=== PATIENT | female | born 1955 | race Caucasian/White ===

== ENCOUNTER → 2016-11-28 | Outpatient (CLI) | payer MEDICARE, MEDICAID, SELFPAY ==
[~2016-11-28] VITALS: Ht 147.3 cm; Wt 41.0 kg
[~2016-11-28] MED LIST: ASPI-891 PO; BENZ1TAB10 PO; CALC-789 PO; DSS100 PO; FISH1CAP49 PO; GABA-531 PO; GABA-533 PO; HALO5 PO; IBUP-2070 PO; RANI150T7 PO; TRAM50TA4 PO
[2016-11-28 09:55] VITALS: BP 106/70
== END | disposition home or self-care (01) ==
LOC: SRCNTR 09:51
PROVIDERS: ATTEND Hospitalist
DX: J44.9 Chronic obstructive pulmonary disease, unspecified (principal); M81.0 Age-related osteoporosis without current pathological fracture; M25.512 Pain in left shoulder; F99 Mental disorder, not otherwise specified; B07.8 Other viral warts; Z72.0 Tobacco use; Z71.6 Tobacco abuse counseling
CPT/HCPCS: G0463

== ENCOUNTER → 2016-12-23 | Outpatient (CLI) | payer MEDICARE, OTHER ==
[2016-12-23 11:27] LABS: BASOPHILS % (AUTO) 0.5 % (0.0-2.0); EOSINOPHILS % (AUTO) 1.4 % (1.0-6.0); HEMATOCRIT 41.1 % (36-46); HEMOGLOBIN 13.6 g/dL (12.0-16.0); LYMPHOCYTES # (AUTO) 1.4 K/uL (1.0-4.8); LYMPHOCYTES % (AUTO) 28.1 % (22.0-44.0); MEAN CORPUSCULAR HEMOGLOBIN 31.4 pg (26.0-34.0); MEAN CORPUSCULAR HGB CONC 33.1 G/dL (31.0-37.0); MEAN CORPUSCULAR VOLUME 95 fL (80-100); MONOCYTES # (AUTO) 0.4 K/uL (0.1-1.0); MONOCYTES % (AUTO) 7.7 % (2.0-9.0); NEUTROPHILS # (AUTO) 3.2 K/uL (1.8-7.7); NEUTROPHILS % (AUTO) 62.3 % (40.0-70.0); PLATELET COUNT (AUTO) 243 K/uL (150-450); RED BLOOD CELL COUNT(AUTO) 4.35 MIL/uL (4.00-5.20); RED CELL DISTRIBUTION WIDTH 13.2 % (11.5-14.5); WHITE BLOOD COUNT (AUTO) 5.1 K/uL (4.5-11.0)
[2016-12-23 11:57] LABS: ALANINE AMINOTRANSFERASE 28 U/L (12-78); ALBUMIN 3.7 g/dL (3.4-5.0); ANION GAP 7 mmol/L (8-16); ASPARTATE AMINOTRANSFERASE 33 U/L (15-37); BILIRUBIN,TOTAL 0.3 mg/dL (0.1-1.0); CALCIUM, TOTAL 8.4 mg/dL (8.8-10.5); CARBON DIOXIDE 30 mmol/L (22-29); CHLORIDE 102 mmol/L (98-107); CHOL/HDL RATIO 2.8 (3.9-5.7); CREATININE 0.65 mg/dL (0.60-1.30); GLOMERULAR FILTR. RATE CALC > 60 mL/min (>60); POTASSIUM 4.4 mmol/L (3.5-5.1); SODIUM SERUM 139 mmol/L (136-145); THYROID STIMULATING HORMONE 2.13 uIU/mL (0.36-3.74); UREA NITROGEN, BLOOD 19 mg/dL (7-18)
== END | disposition home or self-care (01) ==
LOC: MSR 10:31
PROVIDERS: ATTEND Hospitalist
DX: J44.9 Chronic obstructive pulmonary disease, unspecified (principal); M81.0 Age-related osteoporosis without current pathological fracture; I70.0 Atherosclerosis of aorta; J98.4 Other disorders of lung; Z72.0 Tobacco use; Z79.899 Other long term (current) drug therapy; Z96.612 Presence of left artificial shoulder joint
CPT/HCPCS: 71020; 82271; 84439; 84443

== ENCOUNTER → 2017-02-20 | Outpatient (CLI) | payer MEDICARE, MEDICAID, SELFPAY ==
[~2017-02-20] VITALS: Ht 147.3 cm; Wt 41.0 kg
[2017-02-20 11:06] VITALS: BP 97/67
== END | disposition home or self-care (01) ==
LOC: SRCNTR 10:56
PROVIDERS: ATTEND Hospitalist
DX: J44.9 Chronic obstructive pulmonary disease, unspecified (principal); M81.0 Age-related osteoporosis without current pathological fracture; F99 Mental disorder, not otherwise specified; B07.8 Other viral warts; Z72.0 Tobacco use
CPT/HCPCS: G0463

== ENCOUNTER 2017-06-06 00:01 | Outpatient (RCR) | payer MEDICARE, MEDICAID, SELFPAY ==
[2016-10-18 11:46] VITALS: BP 114/81
[~2017-06-06 00:01] MED LIST changes: +ACET-2902 PO; +ALBUTEROL 2 PUFFS PO; +ATOR10TA84 PO; +ATOR20TA86 PO; +BENZ2TAB58 GT; +BENZ2TAB58 PO; +CALC3.7S6 NASAL; +CHLO100T24 PO; +CHLO50 PO; +DIPH12.55 PO; +DOCU250C14 PO; +DOCU250C91 PO; +DULO20CA30 PO; +DULO30CA2 PO; +FERR-89 PO; +GABA-529 PO; +HALO10 PO; +HALO10TA15 GT; +HALO10TA15 PO; +HYDR-3965 PO; +LORA2TAB2 PO; +MAG-55 PO; +OMEP20 PO; +ONDA4TAB10 PO; +PANT40TA25 PO; +SINGULAR PO; +THORAZINE PO
== END 2017-07-05 | disposition home or self-care (01) ==
LOC: IOPBV 00:01
PROVIDERS: ATTEND Psychiatry & Neurology Psychiatry
DX: F25.9 Schizoaffective disorder, unspecified (principal); F22 Delusional disorders; M25.512 Pain in left shoulder; F17.210 Nicotine dependence, cigarettes, uncomplicated; J44.9 Chronic obstructive pulmonary disease, unspecified; K21.9 Gastro-esophageal reflux disease without esophagitis; M79.9 Soft tissue disorder, unspecified; M19.90 Unspecified osteoarthritis, unspecified site; F41.9 Anxiety disorder, unspecified; F32.9 Major depressive disorder, single episode, unspecified; B19.20 Unspecified viral hepatitis C without hepatic coma; Z91.09 Other allergy status, other than to drugs and biological substances; Z88.3 Allergy status to other anti-infective agents; Z88.4 Allergy status to anesthetic agent
CPT/HCPCS: 90853

== ENCOUNTER 2019-03-18 04:19 | Inpatient (IN) | payer MEDICARE, MEDICAID ==
[~2019-03-18] VITALS: Ht 147.3 cm; Wt 39.7 kg
[~2019-03-18 04:19] MED LIST changes: -ACET-2902 PO; -ALBUTEROL 2 PUFFS PO; -ATOR10TA84 PO; -ATOR20TA86 PO; -BENZ2TAB58 GT; -BENZ2TAB58 PO; -CALC3.7S6 NASAL; -CHLO100T24 PO; -CHLO50 PO; -DIPH12.55 PO; -DOCU250C14 PO; -DOCU250C91 PO; -DULO20CA30 PO; -DULO30CA2 PO; -FERR-89 PO; -GABA-529 PO; -GABA-533 PO; -HALO10 PO; -HALO10TA15 GT; -HALO10TA15 PO; -HALO5 PO; +HALO5TAB2 PO; -HYDR-3965 PO; -IBUP-2070 PO; -LORA2TAB2 PO; -MAG-55 PO; -OMEP20 PO; -ONDA4TAB10 PO; -PANT40TA25 PO; -SINGULAR PO; -THORAZINE PO
[2019-03-18 04:48] LABS: BASOPHILS % (AUTO) 0.9 % (0.0-2.0); EOSINOPHILS % (AUTO) 2.6 % (1.0-6.0); HEMATOCRIT 36.7 % (36-46); HEMOGLOBIN 12.3 g/dL (12.0-16.0); LYMPHOCYTES % (AUTO) 19.5 % (22.0-44.0); MEAN CORPUSCULAR HGB CONC 33.6 G/dL (31.0-37.0); MEAN CORPUSCULAR VOLUME 95 fL (80-100); MONOCYTES # (AUTO) 0.4 K/uL (0.1-1.0); MONOCYTES % (AUTO) 7.6 % (2.0-9.0); NEUTROPHILS # (AUTO) 3.6 K/uL (1.8-7.7); NEUTROPHILS % (AUTO) 69.4 % (40.0-70.0); PLATELET COUNT (AUTO) 222 K/uL (150-450); RED BLOOD CELL COUNT(AUTO) 3.85 MIL/uL (4.00-5.20); RED CELL DISTRIBUTION WIDTH 12.8 % (11.5-14.5)
[2019-03-18 04:58] LABS: ANION GAP 10 mmol/L (8-16); CALCIUM, TOTAL 8.7 mg/dL (8.8-10.5); CARBON DIOXIDE 29 mmol/L (22-29); CHLORIDE 105 mmol/L (98-107); GLOMERULAR FILTR. RATE CALC > 60 mL/min (>60); GLUCOSE,RANDOM 119 mg/dL (70-110); POTASSIUM 4.3 mmol/L (3.5-5.1); SODIUM SERUM 144 mmol/L (136-145); UREA NITROGEN, BLOOD 24 mg/dL (7-18)
[2019-03-18 05:04] LABS: ALANINE AMINOTRANSFERASE 24 U/L (12-78); ALBUMIN 3.1 g/dL (3.4-5.0); ALKALINE PHOSPHATASE 65 U/L (46-116); ASPARTATE AMINOTRANSFERASE 38 U/L (15-37); BILIRUBIN,TOTAL 0.3 mg/dL (0.1-1.0); TOTAL PROTEIN, SERUM 6.6 g/dL (6.4-8.2)
[2019-03-18 05:12] LABS: SALICYLATE 4.4 mg/dL (2.8-20.0)
[2019-03-18 05:15] LABS: ACETAMINOPHEN < 2 mcg/mL (10-30)
[2019-03-18] MEDS ORDERED: ZOLPIDEM TARTRATE 10 MG TABLET PO PRN (09:00)
[2019-03-18] MEDS ORDERED: HALOPERIDOL 5 MG TABLET PO PRN (09:00)
[2019-03-18] MEDS ORDERED: LORazepam 2 MG TABLET PO PRN (09:00)
[2019-03-18] MEDS ORDERED: LOPERAMIDE HCL 2 MG CAPSULE PO PRN (11:30)
[2019-03-18] MEDS ORDERED: ACETAMINOPHEN 325 MG TABLET PO PRN (11:30)
[2019-03-18] MEDS ORDERED: GuaiFENesin/D-METHORPHAN [SUGAR-FREE] 200-20MG/10 ML SYRUP UDCUP PO PRN (11:30)
[2019-03-18] MEDS ORDERED: PROMETHAZINE HCL 25 MG TABLET PO PRN (11:30)
[2019-03-18] MEDS ORDERED: MAG HYDROX/AL HYDROX/SIMETH ES 30 ML SUSPENSION UDCUP PO PRN (11:30)
[2019-03-18] MEDS ORDERED: TUBERCULIN, PURIFIED PROTEIN DERIVATIVE 5 TU/0.1 ML SYRINGE ID ONE (11:30)
[2019-03-18] MEDS ORDERED: MAGNESIUM HYDROXIDE SUSPENSION 30 ML UDCUP PO PRN (11:30)
[2019-03-18 12:00] VITALS: BP 103/68
[2019-03-18] MEDS ORDERED: GABAPENTIN 300 MG CAPSULE PO SCH ×2 (16:00→21:00)
[2019-03-18] MEDS ORDERED: BENZTROPINE MESYLATE 1 MG TABLET PO SCH (21:00)
[2019-03-18] MEDS ORDERED: THIAMINE HCL 100 MG TABLET PO SCH (21:00)
[2019-03-18] MEDS ORDERED: HALOPERIDOL 5 MG TABLET PO SCH (21:00)
[2019-03-19] MEDS ORDERED: FOLIC ACID 1 MG TABLET PO SCH (09:00)
[2019-03-19] MEDS ORDERED: MULTIVITAMINS WITH MINERALS, THERAPEUTIC TABLET PO SCH (09:00)
== END 2019-03-18 15:39 | disposition short-term general hospital (02) | DRG 885 ==
LOC: EMS 04:29 → B3A 09:33
PROVIDERS: ADMIT Psychiatry & Neurology Psychiatry; ATTEND Psychiatry & Neurology Psychiatry
DX: F20.0 Paranoid schizophrenia (principal); F17.210 Nicotine dependence, cigarettes, uncomplicated; F32.9 Major depressive disorder, single episode, unspecified; K21.9 Gastro-esophageal reflux disease without esophagitis; M81.0 Age-related osteoporosis without current pathological fracture; T50.902A Poisoning by unspecified drugs, medicaments and biological substances, intentional self-harm, initial encounter; G89.29 Other chronic pain; Y92.89 Other specified places as the place of occurrence of the external cause; Z65.3 Problems related to other legal circumstances; Z79.82 Long term (current) use of aspirin; Z86.59 Personal history of other mental and behavioral disorders; Z91.19 Patient's noncompliance with other medical treatment and regimen; Z79.899 Other long term (current) drug therapy
CPT/HCPCS: 93005; G0480; G0481

== ENCOUNTER 2019-03-22 16:30 | Inpatient (IN) | payer MEDICARE, MEDICAID ==
[~2019-03-22] VITALS: Ht 147.3 cm; Wt 39.3 kg
[2019-03-22] MEDS ORDERED: LOPERAMIDE HCL 2 MG CAPSULE PO PRN (17:30)
[2019-03-22] MEDS ORDERED: HALOPERIDOL 5 MG TABLET PO PRN (17:30)
[2019-03-22] MEDS ORDERED: MAGNESIUM HYDROXIDE SUSPENSION 30 ML UDCUP PO PRN (17:30)
[2019-03-22] MEDS ORDERED: ACETAMINOPHEN 325 MG TABLET PO PRN ×3 (17:30→19:15)
[2019-03-22 18:47] VITALS: BP 134/86
[2019-03-22] MEDS ORDERED: DOCUSATE SODIUM 100 MG CAPSULE PO PRN (19:00)
[2019-03-22] MEDS: GABAPENTIN 300 MG CAPSULE PO SCH (20:01)
[2019-03-22] MEDS: LORazepam 1 MG TABLET PO PRN (20:01)
[2019-03-22] MEDS: HALOPERIDOL 5 MG TABLET PO SCH (20:01)
[2019-03-22] MEDS: BENZTROPINE MESYLATE 1 MG TABLET PO SCH (20:01)
[2019-03-23 06:18] VITALS: BP 117/65
[2019-03-23 08:02] VITALS: BP 120/69
[2019-03-23] MEDS: CALCIUM OYSTER SHELL 250 MG-VIT D3 125 UNITS TABLET PO SCH (08:26)
[2019-03-23] MEDS: LEVOFLOXACIN 250 MG TABLET PO SCH (08:26)
[2019-03-23] MEDS: GABAPENTIN 300 MG CAPSULE PO SCH ×4 (08:26→20:34)
[2019-03-23] MEDS: BENZTROPINE MESYLATE 1 MG TABLET PO SCH ×2 (08:26→16:38)
[2019-03-23] MEDS: OMEGA-3/DHA/EPA/FISH OIL 1,000 MG CAPSULE PO SCH (08:26)
[2019-03-23] MEDS: LORazepam 1 MG TABLET PO PRN (09:37)
[2019-03-23] MEDS: MAG HYDROX/AL HYDROX/SIMETH ES 30 ML SUSPENSION UDCUP PO PRN (09:45)
[2019-03-23] MEDS: NICOTINE 21 MG/24 HOUR PATCH TD SCH (12:29)
[2019-03-23] MEDS: TraMADol HCL 50 MG TABLET PO PRN (12:32)
[2019-03-23 16:47] VITALS: BP 106/71
[2019-03-23] MEDS: HALOPERIDOL 5 MG TABLET PO SCH (20:33)
[2019-03-24 05:35] VITALS: BP 113/65
[2019-03-24] MEDS: LORazepam 1 MG TABLET PO PRN (07:41)
[2019-03-24] MEDS: GABAPENTIN 300 MG CAPSULE PO SCH ×4 (08:01→20:13)
[2019-03-24] MEDS: LEVOFLOXACIN 250 MG TABLET PO SCH (08:01)
[2019-03-24] MEDS: OMEGA-3/DHA/EPA/FISH OIL 1,000 MG CAPSULE PO SCH (08:01)
[2019-03-24] MEDS: BENZTROPINE MESYLATE 1 MG TABLET PO SCH ×2 (08:01→16:04)
[2019-03-24] MEDS: CALCIUM OYSTER SHELL 250 MG-VIT D3 125 UNITS TABLET PO SCH (08:02)
[2019-03-24] MEDS: NICOTINE 21 MG/24 HOUR PATCH TD SCH (08:03)
[2019-03-24 08:15] VITALS: BP 105/76
[2019-03-24] MEDS: TraMADol HCL 50 MG TABLET PO PRN ×2 (08:18→17:35)
[2019-03-24] MEDS: ChlorproMAZINE HCL 25 MG TABLET PO SCH (16:03)
[2019-03-24] MEDS ORDERED: ChlorproMAZINE HCL 50 MG TABLET PO SCH (17:00)
[2019-03-24 17:13] VITALS: BP 118/77
[2019-03-24 17:35] VITALS: BP 133/88
[2019-03-24] MEDS: MAG HYDROX/AL HYDROX/SIMETH ES 30 ML SUSPENSION UDCUP PO PRN (20:20)
[2019-03-25 05:54] VITALS: BP 108/64
[2019-03-25] MEDS: TraMADol HCL 50 MG TABLET PO PRN (06:24)
[2019-03-25 07:54] LABS: ALANINE AMINOTRANSFERASE 58 U/L (12-78); ALBUMIN 2.2 g/dL (3.4-5.0); ALKALINE PHOSPHATASE 78 U/L (46-116); ANION GAP 5 mmol/L (8-16); ASPARTATE AMINOTRANSFERASE 33 U/L (15-37); BILIRUBIN,TOTAL 0.4 mg/dL (0.1-1.0); CARBON DIOXIDE 29 mmol/L (22-29); CHLORIDE 102 mmol/L (98-107); CREATININE 0.52 mg/dL (0.60-1.30); GLOMERULAR FILTR. RATE CALC > 60 mL/min (>60); GLUCOSE,RANDOM 77 mg/dL (70-110); POTASSIUM 3.7 mmol/L (3.5-5.1); SODIUM SERUM 136 mmol/L (136-145); TOTAL PROTEIN, SERUM 5.6 g/dL (6.4-8.2); UREA NITROGEN, BLOOD 14 mg/dL (7-18)
[2019-03-25 08:05] VITALS: BP 109/78
[2019-03-25] MEDS: MULTIVITAMINS WITH MINERALS, THERAPEUTIC TABLET PO SCH (08:20)
[2019-03-25] MEDS: BENZTROPINE MESYLATE 1 MG TABLET PO SCH ×2 (08:20→16:08)
[2019-03-25] MEDS: OMEGA-3/DHA/EPA/FISH OIL 1,000 MG CAPSULE PO SCH (08:20)
[2019-03-25] MEDS: ChlorproMAZINE HCL 25 MG TABLET PO SCH ×3 (08:20→16:08)
[2019-03-25] MEDS: CALCIUM OYSTER SHELL 250 MG-VIT D3 125 UNITS TABLET PO SCH (08:20)
[2019-03-25] MEDS: LEVOFLOXACIN 250 MG TABLET PO SCH (08:20)
[2019-03-25] MEDS: GABAPENTIN 300 MG CAPSULE PO SCH ×4 (08:20→22:19)
[2019-03-25] MEDS: NICOTINE 21 MG/24 HOUR PATCH TD SCH (08:21)
[2019-03-25] MEDS: LORazepam 1 MG TABLET PO PRN (09:26)
[2019-03-25] MEDS ORDERED: CYANOCOBALAMIN 1,000 MCG/ML VIAL IM ONE (13:00)
[2019-03-25] MEDS ORDERED: BENZ1TAB10 PO (17:02)
[2019-03-25] MEDS ORDERED: GABA-531 PO ×2 (17:02)
[2019-03-25] MEDS ORDERED: OMEG-135 PO (17:02)
[2019-03-25] MEDS ORDERED: CHLO25 PO (17:02)
[2019-03-25 17:54] VITALS: BP 115/82
[2019-03-26 00:08] VITALS: BP 114/74
[2019-03-26] MEDS: TraMADol HCL 50 MG TABLET PO PRN ×2 (00:17→09:07)
[2019-03-26] MEDS: BENZTROPINE MESYLATE 1 MG TABLET PO SCH (08:02)
[2019-03-26] MEDS: ChlorproMAZINE HCL 25 MG TABLET PO SCH ×2 (08:02→12:46)
[2019-03-26] MEDS: OMEGA-3/DHA/EPA/FISH OIL 1,000 MG CAPSULE PO SCH (08:02)
[2019-03-26] MEDS: CALCIUM OYSTER SHELL 250 MG-VIT D3 125 UNITS TABLET PO SCH (08:02)
[2019-03-26] MEDS: GABAPENTIN 300 MG CAPSULE PO SCH ×2 (08:02→12:45)
[2019-03-26] MEDS: LEVOFLOXACIN 250 MG TABLET PO SCH (08:02)
[2019-03-26] MEDS: MULTIVITAMINS WITH MINERALS, THERAPEUTIC TABLET PO SCH (08:02)
[2019-03-26] MEDS: NICOTINE 21 MG/24 HOUR PATCH TD SCH (08:03)
[2019-03-26 08:05] VITALS: BP 104/78
[2019-03-26] MEDS: LORazepam 1 MG TABLET PO PRN ×2 (11:05→13:31)
[2019-03-26] MEDS ORDERED: OMEG-135 PO (12:51)
== END 2019-03-26 15:20 | disposition home or self-care (01) | DRG 885 ==
LOC: 3EX 17:50
PROVIDERS: ADMIT Psychiatry & Neurology Psychiatry; ATTEND Psychiatry & Neurology Psychiatry
DX: F20.0 Paranoid schizophrenia (principal); R45.851 Suicidal ideations; F17.210 Nicotine dependence, cigarettes, uncomplicated; Z91.19 Patient's noncompliance with other medical treatment and regimen; J44.9 Chronic obstructive pulmonary disease, unspecified; D64.9 Anemia, unspecified; F32.9 Major depressive disorder, single episode, unspecified; J34.2 Deviated nasal septum; K21.9 Gastro-esophageal reflux disease without esophagitis; M81.0 Age-related osteoporosis without current pathological fracture; Z79.82 Long term (current) use of aspirin; Z87.01 Personal history of pneumonia (recurrent); B19.20 Unspecified viral hepatitis C without hepatic coma; Z79.899 Other long term (current) drug therapy; Z88.4 Allergy status to anesthetic agent; Z88.8 Allergy status to other drugs, medicaments and biological substances
CPT/HCPCS: 80173; 87081; G0378; J3420

== ENCOUNTER 2019-03-29 12:51 | Inpatient (IN) | payer MEDICARE, MEDICAID ==
[~2019-03-29] VITALS: Ht 147.3 cm; Wt 39.0 kg
[~2019-03-29 12:51] MED LIST changes: -ASPI-891 PO; -CALC-789 PO; +CHLO25 PO; -DSS100 PO; -FISH1CAP49 PO; -HALO5TAB2 PO; +OMEG-135 PO; -RANI150T7 PO; -TRAM50TA4 PO
[2019-03-29 13:37] LABS: BASOPHILS % (AUTO) 0.8 % (0.0-2.0); EOSINOPHILS % (AUTO) 0.9 % (1.0-6.0); HEMATOCRIT 33.5 % (36-46); HEMOGLOBIN 11.4 g/dL (12.0-16.0); LYMPHOCYTES # (AUTO) 1.3 K/uL (1.0-4.8); LYMPHOCYTES % (AUTO) 18.4 % (22.0-44.0); MEAN CORPUSCULAR HEMOGLOBIN 32.1 pg (26.0-34.0); MEAN CORPUSCULAR HGB CONC 34.1 G/dL (31.0-37.0); MEAN CORPUSCULAR VOLUME 94 fL (80-100); MONOCYTES # (AUTO) 0.5 K/uL (0.1-1.0); MONOCYTES % (AUTO) 7.7 % (2.0-9.0); NEUTROPHILS # (AUTO) 5.1 K/uL (1.8-7.7); NEUTROPHILS % (AUTO) 72.2 % (40.0-70.0); PLATELET COUNT (AUTO) 477 K/uL (150-450); RED BLOOD CELL COUNT(AUTO) 3.56 MIL/uL (4.00-5.20); RED CELL DISTRIBUTION WIDTH 13.2 % (11.5-14.5)
[2019-03-29 13:48] LABS: ANION GAP 7 mmol/L (8-16); CALCIUM, TOTAL 8.5 mg/dL (8.8-10.5); CARBON DIOXIDE 29 mmol/L (22-29); CHLORIDE 100 mmol/L (98-107); CREATININE 0.56 mg/dL (0.60-1.30); GLOMERULAR FILTR. RATE CALC > 60 mL/min (>60); GLUCOSE,RANDOM 110 mg/dL (70-110); POTASSIUM 4.5 mmol/L (3.5-5.1); SODIUM SERUM 136 mmol/L (136-145); UREA NITROGEN, BLOOD 20 mg/dL (7-18)
[2019-03-29 13:54] LABS: ALANINE AMINOTRANSFERASE 44 U/L (12-78); ALBUMIN 2.6 g/dL (3.4-5.0); ALKALINE PHOSPHATASE 83 U/L (46-116); ASPARTATE AMINOTRANSFERASE 33 U/L (15-37); BILIRUBIN,TOTAL 0.2 mg/dL (0.1-1.0); TOTAL PROTEIN, SERUM 6.6 g/dL (6.4-8.2)
[2019-03-29 14:34] LABS: AMPHET/METH SCREEN,URINE NEGATIVE (NEGATIVE); BARBITURATE SCREEN, URINE NEGATIVE (NEGATIVE); BENZODIAZEPINES SCREEN,URINE NEGATIVE (NEGATIVE); CANNABINOID SCREEN,URINE NEGATIVE (NEGATIVE); COCAINE SCREEN,URINE NEGATIVE (NEGATIVE); METHADONE SCREEN, URINE NEGATIVE (NEGATIVE); OPIATE SCREEN,URINE NEGATIVE (NEGATIVE); PHENCYCLIDINE SCREEN,URINE NEGATIVE (NEGATIVE)
[2019-03-29] MEDS ORDERED: MAGNESIUM HYDROXIDE SUSPENSION 30 ML UDCUP PO PRN (15:00)
[2019-03-29] MEDS ORDERED: HALOPERIDOL 5 MG TABLET PO PRN (15:00)
[2019-03-29] MEDS ORDERED: LOPERAMIDE HCL 2 MG CAPSULE PO PRN (15:00)
[2019-03-29] MEDS ORDERED: ACETAMINOPHEN 325 MG TABLET PO PRN (15:00)
[2019-03-29] MEDS ORDERED: MAG HYDROX/AL HYDROX/SIMETH ES 30 ML SUSPENSION UDCUP PO PRN (15:00)
[2019-03-29] MEDS ORDERED: GuaiFENesin/D-METHORPHAN [SUGAR-FREE] 200-20MG/10 ML SYRUP UDCUP PO PRN (15:00)
[2019-03-29] MEDS ORDERED: GABAPENTIN 300 MG CAPSULE PO SCH (15:58)
[2019-03-29] MEDS ORDERED: ChlorproMAZINE HCL 25 MG TABLET PO SCH ×2 (15:58→17:00)
[2019-03-29] MEDS ORDERED: LORazepam 1 MG TABLET PO ONE (16:00)
[2019-03-29] MEDS: THIAMINE HCL 100 MG TABLET PO SCH (17:20)
[2019-03-29] MEDS: GABAPENTIN 300 MG CAPSULE PO SCH ×2 (17:20→21:00)
[2019-03-29] MEDS: BENZTROPINE MESYLATE 1 MG TABLET PO SCH (17:20)
[2019-03-29 18:33] VITALS: BP 122/78
[2019-03-29 18:42] VITALS: BP 122/78
[2019-03-29] MEDS: NICOTINE 21 MG/24 HOUR PATCH TD SCH (19:16)
[2019-03-29] MEDS ORDERED: ChlorproMAZINE HCL 50 MG TABLET PO SCH (21:00)
[2019-03-30 00:36] VITALS: BP 115/60
[2019-03-30 08:14] VITALS: BP 116/77
[2019-03-30] MEDS: ChlorproMAZINE HCL 25 MG TABLET PO SCH ×2 (08:25→12:43)
[2019-03-30] MEDS: FOLIC ACID 1 MG TABLET PO SCH (08:25)
[2019-03-30] MEDS: GABAPENTIN 300 MG CAPSULE PO SCH ×4 (08:25→20:34)
[2019-03-30] MEDS: BENZTROPINE MESYLATE 1 MG TABLET PO SCH ×2 (08:25→16:39)
[2019-03-30] MEDS: OMEGA-3/DHA/EPA/FISH OIL 1,000 MG CAPSULE PO SCH (08:25)
[2019-03-30] MEDS: MULTIVITAMINS WITH MINERALS, THERAPEUTIC TABLET PO SCH (08:25)
[2019-03-30] MEDS: THIAMINE HCL 100 MG TABLET PO SCH ×2 (08:25→16:39)
[2019-03-30] MEDS: NICOTINE 21 MG/24 HOUR PATCH TD SCH (08:26)
[2019-03-30] MEDS: LORazepam 2 MG TABLET PO PRN (08:33)
[2019-03-30] MEDS: NEOMYCIN/BACITRACIN/POLYMYXIN B 30 GM OINTMENT TP SCH ×2 (12:43→16:39)
[2019-03-30 14:25] VITALS: BP 123/67
[2019-03-30] MEDS: TraMADol HCL 50 MG TABLET PO PRN (14:25)
[2019-03-30 16:25] VITALS: BP 108/78
[2019-03-30] MEDS: ALBUTEROL SULFATE HFA 90 MCG/PUFF 8 GM INHALER IH PRN (18:09)
[2019-03-31 00:21] VITALS: BP 118/82
[2019-03-31 06:00] VITALS: BP 115/60
[2019-03-31] MEDS: TraMADol HCL 50 MG TABLET PO PRN ×2 (06:02→16:03)
[2019-03-31] MEDS: THIAMINE HCL 100 MG TABLET PO SCH ×2 (08:09→16:02)
[2019-03-31] MEDS: FOLIC ACID 1 MG TABLET PO SCH (08:09)
[2019-03-31] MEDS: OMEGA-3/DHA/EPA/FISH OIL 1,000 MG CAPSULE PO SCH (08:09)
[2019-03-31] MEDS: BENZTROPINE MESYLATE 1 MG TABLET PO SCH ×2 (08:09→16:02)
[2019-03-31] MEDS: MULTIVITAMINS WITH MINERALS, THERAPEUTIC TABLET PO SCH (08:09)
[2019-03-31] MEDS: GABAPENTIN 300 MG CAPSULE PO SCH ×4 (08:10→20:18)
[2019-03-31] MEDS: HALOPERIDOL 5 MG TABLET PO SCH (08:10)
[2019-03-31] MEDS: PARoxetine HCL 20 MG TABLET PO SCH (08:10)
[2019-03-31] MEDS: NEOMYCIN/BACITRACIN/POLYMYXIN B 30 GM OINTMENT TP SCH ×2 (08:13→16:04)
[2019-03-31] MEDS: NICOTINE 21 MG/24 HOUR PATCH TD SCH (08:14)
[2019-03-31 08:44] VITALS: BP 90/64
[2019-03-31] MEDS: ALBUTEROL SULFATE HFA 90 MCG/PUFF 8 GM INHALER IH PRN ×3 (09:31→18:12)
[2019-03-31] MEDS: LORazepam 2 MG TABLET PO PRN (12:56)
[2019-03-31 16:03] VITALS: BP 110/74
[2019-03-31] MEDS: ZOLPIDEM TARTRATE 10 MG TABLET PO PRN (21:03)
[2019-04-01] MEDS: ALBUTEROL SULFATE HFA 90 MCG/PUFF 8 GM INHALER IH PRN ×4 (06:14→19:38)
[2019-04-01 06:35] VITALS: BP 107/69
[2019-04-01] MEDS: FOLIC ACID 1 MG TABLET PO SCH (08:11)
[2019-04-01] MEDS: MULTIVITAMINS WITH MINERALS, THERAPEUTIC TABLET PO SCH (08:11)
[2019-04-01] MEDS: HALOPERIDOL 5 MG TABLET PO SCH (08:11)
[2019-04-01] MEDS: OMEGA-3/DHA/EPA/FISH OIL 1,000 MG CAPSULE PO SCH (08:11)
[2019-04-01] MEDS: PARoxetine HCL 20 MG TABLET PO SCH (08:11)
[2019-04-01] MEDS: BENZTROPINE MESYLATE 1 MG TABLET PO SCH (08:12)
[2019-04-01] MEDS: GABAPENTIN 300 MG CAPSULE PO SCH ×4 (08:12→20:38)
[2019-04-01] MEDS: THIAMINE HCL 100 MG TABLET PO SCH ×2 (08:12→16:49)
[2019-04-01] MEDS: NICOTINE 21 MG/24 HOUR PATCH TD SCH (08:12)
[2019-04-01] MEDS: NEOMYCIN/BACITRACIN/POLYMYXIN B 30 GM OINTMENT TP SCH ×2 (08:12→16:50)
[2019-04-01 08:23] VITALS: BP 108/75
[2019-04-01] MEDS: PROMETHAZINE HCL 25 MG TABLET PO PRN ×2 (09:37→20:46)
[2019-04-01] MEDS: LORazepam 2 MG TABLET PO PRN ×2 (10:01→23:57)
[2019-04-01] MEDS ORDERED: OMEG-135 PO (12:48)
[2019-04-01] MEDS ORDERED: GABA-531 PO ×2 (12:48)
[2019-04-01] MEDS ORDERED: PARO-37 PO (12:48)
[2019-04-01] MEDS ORDERED: BENZ1TAB10 PO (12:48)
[2019-04-01] MEDS: BENZTROPINE MESYLATE 2 MG TABLET PO SCH ×2 (13:13→16:49)
[2019-04-01 16:39] VITALS: BP 119/72
[2019-04-01] MEDS: ZOLPIDEM TARTRATE 10 MG TABLET PO PRN (21:07)
[2019-04-01] MEDS ORDERED: ONDANSETRON HCL 4 MG/2 ML VIAL IM ONE (21:45)
[2019-04-02 01:11] VITALS: BP 132/87
[2019-04-02] MEDS: BENZTROPINE MESYLATE 2 MG TABLET PO SCH (08:08)
[2019-04-02] MEDS: GABAPENTIN 300 MG CAPSULE PO SCH (08:08)
[2019-04-02] MEDS: THIAMINE HCL 100 MG TABLET PO SCH (08:08)
[2019-04-02] MEDS: HALOPERIDOL 5 MG TABLET PO SCH (08:08)
[2019-04-02] MEDS: PARoxetine HCL 20 MG TABLET PO SCH (08:08)
[2019-04-02] MEDS: MULTIVITAMINS WITH MINERALS, THERAPEUTIC TABLET PO SCH (08:08)
[2019-04-02] MEDS: OMEGA-3/DHA/EPA/FISH OIL 1,000 MG CAPSULE PO SCH (08:08)
[2019-04-02] MEDS: NICOTINE 21 MG/24 HOUR PATCH TD SCH (08:08)
[2019-04-02] MEDS: FOLIC ACID 1 MG TABLET PO SCH (08:08)
[2019-04-02 08:09] VITALS: BP 115/73
[2019-04-02] MEDS: TraMADol HCL 50 MG TABLET PO PRN (08:09)
[2019-04-02] MEDS: NEOMYCIN/BACITRACIN/POLYMYXIN B 30 GM OINTMENT TP SCH (08:09)
[2019-04-02] MEDS ORDERED: PARO20TA24 PO (08:26)
[2019-04-02] MEDS ORDERED: NEOM28.38 TP (08:26)
[2019-04-02] MEDS ORDERED: HALO5TAB2 PO ×4 (08:26→09:45)
[2019-04-02] MEDS ORDERED: BENZ2TAB10 PO (08:26)
[2019-04-02] MEDS ORDERED: ALBU8HFA IH (10:23)
== END 2019-04-02 10:10 | disposition home or self-care (01) | DRG 885 ==
LOC: EMS 12:51 → B2S 15:26
PROVIDERS: ADMIT Psychiatry & Neurology Psychiatry; ATTEND Psychiatry & Neurology Psychiatry
DX: F20.0 Paranoid schizophrenia (principal); E44.0 Moderate protein-calorie malnutrition; R45.851 Suicidal ideations; Z68.1 Body mass index [BMI] 19.9 or less, adult; K21.9 Gastro-esophageal reflux disease without esophagitis; G89.29 Other chronic pain; J44.9 Chronic obstructive pulmonary disease, unspecified; D64.9 Anemia, unspecified; B19.20 Unspecified viral hepatitis C without hepatic coma; L73.9 Follicular disorder, unspecified; F17.200 Nicotine dependence, unspecified, uncomplicated; F19.10 Other psychoactive substance abuse, uncomplicated; F32.9 Major depressive disorder, single episode, unspecified; M81.0 Age-related osteoporosis without current pathological fracture; Z65.3 Problems related to other legal circumstances; Z79.899 Other long term (current) drug therapy; Z88.8 Allergy status to other drugs, medicaments and biological substances; Z91.19 Patient's noncompliance with other medical treatment and regimen
CPT/HCPCS: 80173; 87081; G0480; J2405; J3535

== ENCOUNTER 2019-05-25 10:44 | Inpatient (IN) | payer MEDICARE, MEDICAID ==
[~2019-05-25] VITALS: Ht 147.3 cm; Wt 39.1 kg
[~2019-05-25 10:44] MED LIST changes: +ALBU8HFA IH; -CHLO25 PO; +NEOM28.38 TP; +PARO-37 PO
[2019-05-25 12:32] VITALS: BP 111/86
[2019-05-25] MEDS ORDERED: HALOPERIDOL 5 MG TABLET PO PRN (13:15)
[2019-05-25] MEDS ORDERED: ZOLPIDEM TARTRATE 5 MG TABLET PO PRN (13:15)
[2019-05-25 13:48] VITALS: BP 122/79
[2019-05-25] MEDS: NICOTINE 21 MG/24 HOUR PATCH TD SCH (13:58)
[2019-05-25] MEDS: LORazepam 2 MG TABLET PO PRN (14:02)
[2019-05-25] MEDS ORDERED: LOPERAMIDE HCL 2 MG CAPSULE PO PRN (14:45)
[2019-05-25] MEDS ORDERED: GuaiFENesin/D-METHORPHAN [SUGAR-FREE] 200-20MG/10 ML SYRUP UDCUP PO PRN (14:45)
[2019-05-25] MEDS ORDERED: MAGNESIUM HYDROXIDE SUSPENSION 30 ML UDCUP PO PRN (14:45)
[2019-05-25] MEDS ORDERED: MAG HYDROX/AL HYDROX/SIMETH ES 30 ML SUSPENSION UDCUP PO PRN (14:45)
[2019-05-25] MEDS ORDERED: ACETAMINOPHEN 325 MG TABLET PO PRN (14:45)
[2019-05-25] MEDS ORDERED: PROMETHAZINE HCL 25 MG TABLET PO PRN (14:45)
[2019-05-25] MEDS ORDERED: PNEUMOCOCCAL VACCINE POLYVALENT 0.5 ML VIAL [PPSV23] IM ONE (15:15)
[2019-05-25 16:02] VITALS: BP 113/78
[2019-05-25] MEDS: THIAMINE HCL 100 MG TABLET PO SCH (16:32)
[2019-05-25] MEDS: GABAPENTIN 400 MG CAPSULE PO SCH (16:33)
[2019-05-25] MEDS: BENZTROPINE MESYLATE 2 MG TABLET PO SCH (16:33)
[2019-05-25] MEDS: GABAPENTIN 300 MG CAPSULE PO SCH (20:06)
[2019-05-26 00:54] VITALS: BP 131/71
[2019-05-26 08:24] VITALS: BP 109/68
[2019-05-26] MEDS: FOLIC ACID 1 MG TABLET PO SCH (08:40)
[2019-05-26] MEDS: BENZTROPINE MESYLATE 2 MG TABLET PO SCH ×3 (08:40→17:16)
[2019-05-26] MEDS: HALOPERIDOL 5 MG TABLET PO SCH (08:40)
[2019-05-26] MEDS: GABAPENTIN 400 MG CAPSULE PO SCH ×3 (08:40→17:16)
[2019-05-26] MEDS: MULTIVITAMINS WITH MINERALS, THERAPEUTIC TABLET PO SCH (08:40)
[2019-05-26] MEDS: PARoxetine HCL 10 MG TABLET PO SCH (08:40)
[2019-05-26] MEDS: THIAMINE HCL 100 MG TABLET PO SCH ×2 (08:40→17:16)
[2019-05-26] MEDS: NICOTINE 21 MG/24 HOUR PATCH TD SCH (08:42)
[2019-05-26 08:58] LABS: BASOPHILS % (AUTO) 0.5 % (0.0-2.0); HEMATOCRIT 40.1 % (36-46); HEMOGLOBIN 13.4 g/dL (12.0-16.0); LYMPHOCYTES # (AUTO) 0.9 K/uL (1.0-4.8); MEAN CORPUSCULAR HEMOGLOBIN 31.6 pg (26.0-34.0); MEAN CORPUSCULAR HGB CONC 33.5 G/dL (31.0-37.0); MEAN CORPUSCULAR VOLUME 95 fL (80-100); MONOCYTES # (AUTO) 0.3 K/uL (0.1-1.0); MONOCYTES % (AUTO) 7.1 % (2.0-9.0); NEUTROPHILS # (AUTO) 3.2 K/uL (1.8-7.7); NEUTROPHILS % (AUTO) 69.4 % (40.0-70.0); PLATELET COUNT (AUTO) 211 K/uL (150-450); RED BLOOD CELL COUNT(AUTO) 4.24 MIL/uL (4.00-5.20); RED CELL DISTRIBUTION WIDTH 13.2 % (11.5-14.5)
[2019-05-26] MEDS ORDERED: HALOPERIDOL 5 MG TABLET PO SCH (09:00)
[2019-05-26] MEDS: TraMADol HCL 50 MG TABLET PO PRN (09:02)
[2019-05-26 09:57] LABS: ALANINE AMINOTRANSFERASE 21 U/L (12-78); ALBUMIN 3.2 g/dL (3.4-5.0); ALKALINE PHOSPHATASE 60 U/L (46-116); ANION GAP 11 mmol/L (8-16); ASPARTATE AMINOTRANSFERASE 26 U/L (15-37); BILIRUBIN,TOTAL 0.3 mg/dL (0.1-1.0); CARBON DIOXIDE 26 mmol/L (22-29); CHLORIDE 102 mmol/L (98-107); CHOL/HDL RATIO 2.9 (3.9-5.7); CHOLESTEROL 205 mg/dL (131-200); CREATININE 0.59 mg/dL (0.60-1.30); FREE T4 (FREE THYROXINE) 0.96 ng/dL (0.76-1.46); GLOMERULAR FILTR. RATE CALC > 60 mL/min (>60); GLUCOSE,RANDOM 92 mg/dL (70-110); HDL CHOLESTEROL 71 mg/dL (40-60); LDL CHOL (CALC.) 118 mg/dL (0-130); SODIUM SERUM 139 mmol/L (136-145); THYROID STIMULATING HORMONE 2.55 uIU/mL (0.36-3.74); TOTAL PROTEIN, SERUM 6.1 g/dL (6.4-8.2); TRIGLYCERIDES 80 mg/dL (15-150); UREA NITROGEN, BLOOD 20 mg/dL (7-18)
[2019-05-26] MEDS: LORazepam 2 MG TABLET PO PRN (12:30)
[2019-05-26 16:01] VITALS: BP 117/74
[2019-05-26] MEDS: GABAPENTIN 300 MG CAPSULE PO SCH (20:22)
[2019-05-27 06:21] VITALS: BP 133/80
[2019-05-27] MEDS: TraMADol HCL 50 MG TABLET PO PRN (07:03)
[2019-05-27 08:05] VITALS: BP 104/71
[2019-05-27] MEDS: GABAPENTIN 400 MG CAPSULE PO SCH ×3 (08:13→16:36)
[2019-05-27] MEDS: MULTIVITAMINS WITH MINERALS, THERAPEUTIC TABLET PO SCH (08:13)
[2019-05-27] MEDS: FOLIC ACID 1 MG TABLET PO SCH (08:13)
[2019-05-27] MEDS: PARoxetine HCL 10 MG TABLET PO SCH (08:14)
[2019-05-27] MEDS: THIAMINE HCL 100 MG TABLET PO SCH ×2 (08:14→16:36)
[2019-05-27] MEDS: BENZTROPINE MESYLATE 2 MG TABLET PO SCH ×3 (08:14→16:36)
[2019-05-27] MEDS: HALOPERIDOL 5 MG TABLET PO SCH (08:14)
[2019-05-27] MEDS: NICOTINE 21 MG/24 HOUR PATCH TD SCH (08:14)
[2019-05-27 09:39] VITALS: BP 116/78
[2019-05-27] MEDS: LORazepam 2 MG TABLET PO PRN ×2 (09:39→16:55)
[2019-05-27 13:12] VITALS: BP 112/76
[2019-05-27] MEDS ORDERED: BENZ2TAB10 PO (15:54)
[2019-05-27] MEDS ORDERED: GABA-533 PO (15:54)
[2019-05-27] MEDS ORDERED: GABA-531 PO (15:54)
[2019-05-27] MEDS ORDERED: PARO10TA71 PO (15:54)
[2019-05-27] MEDS ORDERED: HALO5TAB2 PO (15:54)
[2019-05-27 16:06] VITALS: BP 121/84
[2019-05-27] MEDS: GABAPENTIN 300 MG CAPSULE PO SCH (20:28)
[2019-05-28 00:38] VITALS: BP 116/78
[2019-05-28] MEDS ORDERED: PARO10TA89 PO (04:58)
[2019-05-28] MEDS ORDERED: GABA-533 PO (04:58)
[2019-05-28] MEDS ORDERED: HALO10 PO (04:58)
[2019-05-28] MEDS ORDERED: FOLI1 PO (04:58)
[2019-05-28] MEDS ORDERED: THIA100T67 PO (04:58)
[2019-05-28] MEDS ORDERED: MULT-1239 PO (04:58)
[2019-05-28] MEDS ORDERED: MULT-248 PO (05:05)
[2019-05-28 06:11] VITALS: BP 122/84
[2019-05-28] MEDS: TraMADol HCL 50 MG TABLET PO PRN (06:21)
[2019-05-28] MEDS: BENZTROPINE MESYLATE 2 MG TABLET PO SCH (08:08)
[2019-05-28] MEDS: THIAMINE HCL 100 MG TABLET PO SCH (08:08)
[2019-05-28] MEDS: HALOPERIDOL 5 MG TABLET PO SCH (08:08)
[2019-05-28] MEDS: PARoxetine HCL 10 MG TABLET PO SCH (08:08)
[2019-05-28] MEDS: FOLIC ACID 1 MG TABLET PO SCH (08:08)
[2019-05-28] MEDS: MULTIVITAMINS WITH MINERALS, THERAPEUTIC TABLET PO SCH (08:08)
[2019-05-28] MEDS: GABAPENTIN 400 MG CAPSULE PO SCH (08:08)
[2019-05-28 08:13] VITALS: BP 109/73
[2019-05-28] MEDS: NICOTINE 21 MG/24 HOUR PATCH TD SCH (08:13)
== END 2019-05-28 11:07 | disposition home or self-care (01) | DRG 885 ==
LOC: B2X 13:18
PROVIDERS: ADMIT Psychiatry & Neurology Psychiatry; ATTEND Psychiatry & Neurology Psychiatry
DX: F25.9 Schizoaffective disorder, unspecified (principal); B19.20 Unspecified viral hepatitis C without hepatic coma; E46 Unspecified protein-calorie malnutrition; Z68.1 Body mass index [BMI] 19.9 or less, adult; M19.90 Unspecified osteoarthritis, unspecified site; J44.9 Chronic obstructive pulmonary disease, unspecified; Z91.19 Patient's noncompliance with other medical treatment and regimen; Z87.11 Personal history of peptic ulcer disease; M75.52 Bursitis of left shoulder; K21.9 Gastro-esophageal reflux disease without esophagitis; D64.9 Anemia, unspecified; F32.9 Major depressive disorder, single episode, unspecified; Z88.8 Allergy status to other drugs, medicaments and biological substances
CPT/HCPCS: 80173; 84439; 84443; 87081

== ENCOUNTER 2019-06-26 13:01 | Inpatient (IN) | payer MEDICARE, MEDICAID ==
[~2019-06-26] VITALS: Ht 147.3 cm; Wt 39.5 kg
[~2019-06-26 13:01] MED LIST changes: -ALBU8HFA IH; +BENZ2TAB10 PO; +GABA-533 PO; +HALO10 PO; +HALO5TAB2 PO; -NEOM28.38 TP; -OMEG-135 PO; -PARO-37 PO; +PARO10TA71 PO; +PARO10TA89 PO
[2019-06-26 14:12] VITALS: BP 98/74
[2019-06-26] MEDS ORDERED: HALOPERIDOL 5 MG TABLET PO PRN (14:30)
[2019-06-26] MEDS ORDERED: ZOLPIDEM TARTRATE 10 MG TABLET PO PRN (14:30)
[2019-06-26 16:31] VITALS: BP 109/75
[2019-06-26] MEDS: LORazepam 1 MG TABLET PO PRN (16:38)
[2019-06-26 16:46] VITALS: BP 114/64
[2019-06-26] MEDS: NICOTINE 14 MG/24 HOUR PATCH TD SCH (17:10)
[2019-06-26] MEDS: HALOPERIDOL 5 MG TABLET PO SCH (20:29)
[2019-06-26] MEDS: GABAPENTIN 300 MG CAPSULE PO SCH (20:29)
[2019-06-26] MEDS: BENZTROPINE MESYLATE 1 MG TABLET PO SCH (20:29)
[2019-06-27] MEDS ORDERED: PNEUMOCOCCAL VACCINE POLYVALENT 0.5 ML VIAL [PPSV23] IM ONE (03:30)
[2019-06-27 08:11] VITALS: BP 130/80
[2019-06-27 08:31] LABS: APPEARANCE,URINE CLEAR (CLEAR); BILIRUBIN,URINE NEGATIVE (NEGATIVE); GLUCOSE, URINE (UA) NEGATIVE (NEGATIVE); KETONES,URINE NEGATIVE (NEGATIVE); LEUKOCYTE ESTERASE ,URINE NEGATIVE (NEGATIVE); NITRATE,URINE NEGATIVE (NEGATIVE); OCCULT BLOOD,URINE NEGATIVE (NEGATIVE); PH,URINE 6.5 (5.0-8.0); PROTEIN,URINE NEGATIVE (NEGATIVE); UROBILINOGEN,URINE 0.2 mg/dL (<=1.0)
[2019-06-27 08:32] LABS: BASOPHILS % (AUTO) 0.6 % (0.0-2.0); EOSINOPHILS % (AUTO) 3.1 % (1.0-6.0); HEMATOCRIT 41.6 % (36-46); HEMOGLOBIN 13.9 g/dL (12.0-16.0); LYMPHOCYTES # (AUTO) 0.9 K/uL (1.0-4.8); LYMPHOCYTES % (AUTO) 14.2 % (22.0-44.0); MEAN CORPUSCULAR HEMOGLOBIN 31.6 pg (26.0-34.0); MEAN CORPUSCULAR HGB CONC 33.3 G/dL (31.0-37.0); MEAN CORPUSCULAR VOLUME 95 fL (80-100); MONOCYTES # (AUTO) 0.5 K/uL (0.1-1.0); MONOCYTES % (AUTO) 7.8 % (2.0-9.0); NEUTROPHILS # (AUTO) 4.8 K/uL (1.8-7.7); NEUTROPHILS % (AUTO) 74.3 % (40.0-70.0); PLATELET COUNT (AUTO) 211 K/uL (150-450); RED BLOOD CELL COUNT(AUTO) 4.38 MIL/uL (4.00-5.20); RED CELL DISTRIBUTION WIDTH 13.5 % (11.5-14.5)
[2019-06-27] MEDS: PARoxetine HCL 10 MG TABLET PO SCH (08:33)
[2019-06-27] MEDS: NICOTINE 14 MG/24 HOUR PATCH TD SCH (08:33)
[2019-06-27 08:42] LABS: ALANINE AMINOTRANSFERASE 19 U/L (12-78); ALBUMIN 3.1 g/dL (3.4-5.0); ALKALINE PHOSPHATASE 61 U/L (46-116); ANION GAP 14 mmol/L (8-16); ASPARTATE AMINOTRANSFERASE 27 U/L (15-37); BILIRUBIN,TOTAL 0.3 mg/dL (0.1-1.0); CARBON DIOXIDE 25 mmol/L (22-29); CHLORIDE 104 mmol/L (98-107); CHOL/HDL RATIO 3.1 (3.9-5.7); CHOLESTEROL 184 mg/dL (131-200); CREATININE 0.55 mg/dL (0.60-1.30); GLOMERULAR FILTR. RATE CALC > 60 mL/min (>60); GLUCOSE,RANDOM 84 mg/dL (70-110); HDL CHOLESTEROL 59 mg/dL (40-60); LDL CHOL (CALC.) 109 mg/dL (0-130); POTASSIUM 4.5 mmol/L (3.5-5.1); SODIUM SERUM 143 mmol/L (136-145); TOTAL PROTEIN, SERUM 6.2 g/dL (6.4-8.2); TRIGLYCERIDES 81 mg/dL (15-150); UREA NITROGEN, BLOOD 20 mg/dL (7-18)
[2019-06-27 08:44] LABS: AMPHET/METH SCREEN,URINE NEGATIVE (NEGATIVE); BARBITURATE SCREEN, URINE NEGATIVE (NEGATIVE); BENZODIAZEPINES SCREEN,URINE NEGATIVE (NEGATIVE); CANNABINOID SCREEN,URINE NEGATIVE (NEGATIVE); COCAINE SCREEN,URINE NEGATIVE (NEGATIVE); METHADONE SCREEN, URINE NEGATIVE (NEGATIVE); OPIATE SCREEN,URINE NEGATIVE (NEGATIVE)
[2019-06-27 08:47] LABS: PHENCYCLIDINE SCREEN,URINE NEGATIVE (NEGATIVE)
[2019-06-27] MEDS: LORazepam 1 MG TABLET PO PRN ×2 (09:14→14:50)
[2019-06-27 12:12] VITALS: BP 121/81
[2019-06-27] MEDS: TraMADol HCL 50 MG TABLET PO PRN (12:12)
[2019-06-27 16:14] VITALS: BP 110/73
[2019-06-27] MEDS: HALOPERIDOL 5 MG TABLET PO SCH (20:09)
[2019-06-27] MEDS: BENZTROPINE MESYLATE 1 MG TABLET PO SCH (20:09)
[2019-06-27] MEDS: GABAPENTIN 300 MG CAPSULE PO SCH (20:09)
[2019-06-28 00:45] VITALS: BP 101/68
[2019-06-28] MEDS: TraMADol HCL 50 MG TABLET PO PRN ×2 (06:49→16:28)
[2019-06-28] MEDS: LORazepam 1 MG TABLET PO PRN ×2 (08:09→13:50)
[2019-06-28] MEDS: NICOTINE 14 MG/24 HOUR PATCH TD SCH (08:10)
[2019-06-28 08:11] VITALS: BP 131/83
[2019-06-28] MEDS: PARoxetine HCL 10 MG TABLET PO SCH (08:11)
[2019-06-28] MEDS: BENZTROPINE MESYLATE 2 MG TABLET PO SCH ×3 (08:56→16:38)
[2019-06-28] MEDS ORDERED: GuaiFENesin/D-METHORPHAN [SUGAR-FREE] 200-20MG/10 ML SYRUP UDCUP PO PRN (10:30)
[2019-06-28] MEDS ORDERED: PROMETHAZINE HCL 25 MG TABLET PO PRN (10:30)
[2019-06-28] MEDS ORDERED: ACETAMINOPHEN 325 MG TABLET PO PRN (10:30)
[2019-06-28] MEDS ORDERED: LOPERAMIDE HCL 2 MG CAPSULE PO PRN (10:30)
[2019-06-28] MEDS ORDERED: MAGNESIUM HYDROXIDE SUSPENSION 30 ML UDCUP PO PRN (10:30)
[2019-06-28] MEDS ORDERED: MAG HYDROX/AL HYDROX/SIMETH ES 30 ML SUSPENSION UDCUP PO PRN (10:30)
[2019-06-28] MEDS ORDERED: HydrOXYzine PAMOATE 50 MG CAPSULE PO PRN (10:30)
[2019-06-28 16:29] VITALS: BP 114/83
[2019-06-28] MEDS: THIAMINE HCL 100 MG TABLET PO SCH (16:38)
[2019-06-28] MEDS ORDERED: PARO10TA71 PO (16:51)
[2019-06-28] MEDS ORDERED: HALO5TAB2 PO (16:51)
[2019-06-28] MEDS ORDERED: BENZ2TAB10 PO (16:51)
[2019-06-28] MEDS ORDERED: GABAPENTIN 400 MG PO (16:59)
[2019-06-28] MEDS ORDERED: GABAPENTIN 400 MG CAPSULE PO ONE (17:00)
[2019-06-28] MEDS ORDERED: GABAPENTIN 600 MG PO (17:01)
[2019-06-28] MEDS: HALOPERIDOL 5 MG TABLET PO SCH (20:37)
[2019-06-28] MEDS ORDERED: GABAPENTIN 300 MG CAPSULE PO SCH (21:00)
[2019-06-29 00:23] VITALS: BP 127/81
[2019-06-29 06:20] VITALS: BP 109/75
[2019-06-29] MEDS: TraMADol HCL 50 MG TABLET PO PRN (06:22)
[2019-06-29] MEDS: BENZTROPINE MESYLATE 2 MG TABLET PO SCH (08:16)
[2019-06-29] MEDS: THIAMINE HCL 100 MG TABLET PO SCH (08:16)
[2019-06-29] MEDS: NICOTINE 14 MG/24 HOUR PATCH TD SCH (08:18)
[2019-06-29] MEDS: PARoxetine HCL 10 MG TABLET PO SCH (08:19)
[2019-06-29 08:25] VITALS: BP 115/87
[2019-06-29] MEDS ORDERED: MULTIVITAMINS WITH MINERALS, THERAPEUTIC TABLET PO SCH (09:00)
[2019-06-29] MEDS ORDERED: FOLIC ACID 1 MG TABLET PO SCH (09:00)
[2019-06-29] MEDS ORDERED: GABAPENTIN 400 MG CAPSULE PO SCH (09:00)
== END 2019-06-29 09:45 | disposition home or self-care (01) | DRG 885 ==
LOC: B2X 14:43 → UNDOADMIN 14:43 → B2X 06-27 09:01
PROVIDERS: ADMIT Psychiatry & Neurology Psychiatry; ATTEND Psychiatry & Neurology Psychiatry
DX: F25.0 Schizoaffective disorder, bipolar type (principal); B19.20 Unspecified viral hepatitis C without hepatic coma; R45.851 Suicidal ideations; J44.9 Chronic obstructive pulmonary disease, unspecified; F17.210 Nicotine dependence, cigarettes, uncomplicated; K21.9 Gastro-esophageal reflux disease without esophagitis; D64.9 Anemia, unspecified; M75.52 Bursitis of left shoulder; Z91.19 Patient's noncompliance with other medical treatment and regimen; Z28.21 Immunization not carried out because of patient refusal
CPT/HCPCS: 80307; 87081

== ENCOUNTER → 2019-08-06 | Outpatient (CLI) | payer MEDICARE, OTHER ==
[~2019-08-06] MED LIST changes: -BENZ1TAB10 PO; -GABA-531 PO; -GABA-533 PO; +GABAPENTIN 400 MG PO; +GABAPENTIN 600 MG PO; -HALO10 PO; -PARO10TA71 PO
== END | disposition home or self-care (01) ==
LOC: LABMN 09:20
PROVIDERS: ATTEND Psychiatry & Neurology Psychiatry
DX: F25.9 Schizoaffective disorder, unspecified (principal); K21.9 Gastro-esophageal reflux disease without esophagitis; Z79.899 Other long term (current) drug therapy
CPT/HCPCS: 83036

== ENCOUNTER 2019-12-24 17:37 | Inpatient (IN) | payer MEDICARE, MEDICAID ==
[~2019-12-24] VITALS: Ht 149.9 cm; Wt 38.9 kg
[2019-12-24 20:18] VITALS: BP 114/84
[2019-12-24] MEDS ORDERED: HALOPERIDOL 5 MG TABLET PO PRN (21:00)
[2019-12-24] MEDS ORDERED: ZOLPIDEM TARTRATE 10 MG TABLET PO PRN (21:00)
[2019-12-24] MEDS ORDERED: RANI150T7 PO (21:07)
[2019-12-24] MEDS ORDERED: INFLUENZA VIRUS VACCINE QVS 2019-20 (3YR+)/PF 60 MCG/0.5 ML SYRINGE IM ONE (21:45)
[2019-12-24 22:04] VITALS: BP 103/82
[2019-12-25 04:33] VITALS: BP 106/70
[2019-12-25 07:44] LABS: BASOPHILS % (AUTO) 0.9 % (0.0-2.0); EOSINOPHILS % (AUTO) 4.2 % (1.0-6.0); HEMATOCRIT 39.8 % (36-46); HEMOGLOBIN 13.5 g/dL (12.0-16.0); LYMPHOCYTES # (AUTO) 1.2 K/uL (1.0-4.8); LYMPHOCYTES % (AUTO) 31.4 % (22.0-44.0); MEAN CORPUSCULAR HEMOGLOBIN 31.8 pg (26.0-34.0); MEAN CORPUSCULAR VOLUME 94 fL (80-100); MONOCYTES # (AUTO) 0.4 K/uL (0.1-1.0); MONOCYTES % (AUTO) 11.5 % (2.0-9.0); NEUTROPHILS # (AUTO) 1.9 K/uL (1.8-7.7); PLATELET COUNT (AUTO) 236 K/uL (150-450); RED BLOOD CELL COUNT(AUTO) 4.25 MIL/uL (4.00-5.20)
[2019-12-25 08:16] LABS: ALANINE AMINOTRANSFERASE 27 U/L (12-78); ALBUMIN 3.1 g/dL (3.4-5.0); ALKALINE PHOSPHATASE 55 U/L (46-116); ANION GAP 6 mmol/L (8-16); ASPARTATE AMINOTRANSFERASE 24 U/L (15-37); BILIRUBIN,TOTAL 0.3 mg/dL (0.1-1.0); CALCIUM, TOTAL 8.8 mg/dL (8.8-10.5); CARBON DIOXIDE 30 mmol/L (22-29); CHLORIDE 106 mmol/L (98-107); CHOL/HDL RATIO 3.1 (3.9-5.7); CHOLESTEROL 181 mg/dL (131-200); CREATININE 0.64 mg/dL (0.60-1.30); FREE T4 (FREE THYROXINE) 1.13 ng/dL (0.76-1.46); GLOMERULAR FILTR. RATE CALC > 60 mL/min (>60); GLUCOSE,RANDOM 86 mg/dL (70-110); HDL CHOLESTEROL 58 mg/dL (40-60); LDL CHOL (CALC.) 107 mg/dL (0-130); POTASSIUM 4.4 mmol/L (3.5-5.1); SODIUM SERUM 142 mmol/L (136-145); THYROID STIMULATING HORMONE 3.28 uIU/mL (0.36-3.74); TOTAL PROTEIN, SERUM 5.8 g/dL (6.4-8.2); TRIGLYCERIDES 81 mg/dL (15-150); UREA NITROGEN, BLOOD 22 mg/dL (7-18)
[2019-12-25 08:25] VITALS: BP 133/73
[2019-12-25] MEDS: LORazepam 1 MG TABLET PO PRN ×2 (10:36→16:03)
[2019-12-25 16:22] VITALS: BP 113/72
[2019-12-25] MEDS: GABAPENTIN 400 MG CAPSULE PO SCH (17:00)
[2019-12-25] MEDS: BENZTROPINE MESYLATE 2 MG TABLET PO SCH (17:00)
[2019-12-25] MEDS: HALOPERIDOL 5 MG TABLET PO SCH (17:00)
[2019-12-25] MEDS: GABAPENTIN 300 MG CAPSULE PO SCH (20:26)
[2019-12-25] MEDS ORDERED: ONDANSETRON HCL 4 MG TABLET PO PRN (21:45)
[2019-12-26 05:32] VITALS: BP 115/72
[2019-12-26] MEDS: LORazepam 1 MG TABLET PO PRN ×3 (06:58→16:21)
[2019-12-26] MEDS: BENZTROPINE MESYLATE 2 MG TABLET PO SCH ×2 (08:44→16:21)
[2019-12-26] MEDS: PARoxetine HCL 10 MG TABLET PO SCH (08:44)
[2019-12-26] MEDS: HALOPERIDOL 5 MG TABLET PO SCH ×2 (08:44→16:21)
[2019-12-26] MEDS: NICOTINE 21 MG/24 HOUR PATCH TD SCH (08:44)
[2019-12-26] MEDS: GABAPENTIN 400 MG CAPSULE PO SCH ×3 (08:44→16:21)
[2019-12-26 08:48] VITALS: BP 104/74
[2019-12-26 16:11] VITALS: BP 115/82
[2019-12-26] MEDS: GABAPENTIN 300 MG CAPSULE PO SCH (21:25)
[2019-12-27] VITALS (7 sets, daily range): BP systolic 105–122; BP diastolic 64–76
[2019-12-27] MEDS: LORazepam 1 MG TABLET PO PRN ×3 (08:43→16:43)
[2019-12-27] MEDS: BENZTROPINE MESYLATE 2 MG TABLET PO SCH ×2 (08:43→16:43)
[2019-12-27] MEDS: GABAPENTIN 400 MG CAPSULE PO SCH ×3 (08:43→16:43)
[2019-12-27] MEDS: HALOPERIDOL 5 MG TABLET PO SCH ×2 (08:44→16:43)
[2019-12-27] MEDS: PARoxetine HCL 10 MG TABLET PO SCH (08:44)
[2019-12-27] MEDS: NICOTINE 21 MG/24 HOUR PATCH TD SCH (08:45)
[2019-12-27] MEDS: GABAPENTIN 300 MG CAPSULE PO SCH (20:37)
[2019-12-28 00:24] VITALS: BP 104/64
[2019-12-28 01:29] VITALS: BP 107/74
[2019-12-28 01:30] VITALS: BP 113/67
[2019-12-28 02:33] VITALS: BP 112/70
[2019-12-28 06:29] VITALS: BP 110/68
[2019-12-28] MEDS: LORazepam 1 MG TABLET PO PRN (06:52)
[2019-12-28 08:28] VITALS: BP 116/75
[2019-12-28] MEDS: GABAPENTIN 400 MG CAPSULE PO SCH (08:47)
[2019-12-28] MEDS: NICOTINE 21 MG/24 HOUR PATCH TD SCH (08:48)
[2019-12-28] MEDS: HALOPERIDOL 5 MG TABLET PO SCH (08:48)
[2019-12-28] MEDS: BENZTROPINE MESYLATE 2 MG TABLET PO SCH (08:48)
[2019-12-28] MEDS: PARoxetine HCL 10 MG TABLET PO SCH (08:48)
[2019-12-28] MEDS ORDERED: ACETAMINOPHEN 325 MG TABLET PO PRN (11:15)
[2019-12-28] MEDS ORDERED: BENZ2TAB10 PO (12:03)
[2019-12-28] MEDS ORDERED: GABA-533 PO (12:03)
== END 2019-12-28 12:50 | disposition home or self-care (01) | DRG 885 ==
LOC: B2X 21:26
PROVIDERS: ADMIT Psychiatry & Neurology Psychiatry; ATTEND Psychiatry & Neurology Psychiatry
DX: F25.0 Schizoaffective disorder, bipolar type (principal); B19.20 Unspecified viral hepatitis C without hepatic coma; R45.851 Suicidal ideations; F41.9 Anxiety disorder, unspecified; J44.9 Chronic obstructive pulmonary disease, unspecified; Z79.899 Other long term (current) drug therapy; Z88.9 Allergy status to unspecified drugs, medicaments and biological substances
CPT/HCPCS: 84439; 84443; Q0162

== ENCOUNTER 2020-01-18 08:36 | Inpatient (IN) | payer MEDICARE, OTHER ==
[~2020-01-18] VITALS: Ht 147.3 cm; Wt 37.4 kg
[~2020-01-18 08:36] MED LIST changes: +ALEN70TA19 PO; +AZITH500IV PO; +BENZ1TAB10 PO; -BENZ2TAB10 PO; +GABA-533 PO; -GABAPENTIN 400 MG PO; -GABAPENTIN 600 MG PO; +PARO-37 PO; -PARO10TA89 PO
[2020-01-18] MEDS ORDERED: SODIUM CHLORIDE 0.9% 1,000 ML IV ONE ×2 (09:00→11:00)
[2020-01-18 09:10] LABS: BASOPHILS % (AUTO) 1.1 % (0.0-2.0); EOSINOPHILS % (AUTO) 1.2 % (1.0-6.0); HEMATOCRIT 38.7 % (36-46); HEMOGLOBIN 13.1 g/dL (12.0-16.0); LYMPHOCYTES # (AUTO) 1.3 K/uL (1.0-4.8); LYMPHOCYTES % (AUTO) 22.1 % (22.0-44.0); MEAN CORPUSCULAR HEMOGLOBIN 31.4 pg (26.0-34.0); MEAN CORPUSCULAR HGB CONC 33.8 G/dL (31.0-37.0); MEAN CORPUSCULAR VOLUME 93 fL (80-100); MONOCYTES # (AUTO) 0.5 K/uL (0.1-1.0); MONOCYTES % (AUTO) 7.5 % (2.0-9.0); NEUTROPHILS # (AUTO) 4.1 K/uL (1.8-7.7); NEUTROPHILS % (AUTO) 68.1 % (40.0-70.0); PLATELET COUNT (AUTO) 357 K/uL (150-450); RED BLOOD CELL COUNT(AUTO) 4.16 MIL/uL (4.00-5.20)
[2020-01-18 09:30] LABS: ANION GAP 13 mmol/L (8-16); CARBON DIOXIDE 23 mmol/L (22-29); CHLORIDE 102 mmol/L (98-107); CREATININE 0.69 mg/dL (0.60-1.30); GLOMERULAR FILTR. RATE CALC > 60 mL/min (>60); GLUCOSE,RANDOM 84 mg/dL (70-110); POTASSIUM 4.8 mmol/L (3.5-5.1); SODIUM SERUM 138 mmol/L (136-145); UREA NITROGEN, BLOOD 18 mg/dL (7-18)
[2020-01-18 09:33] LABS: PROTHROMBIN TIME 10.5 SEC (9.4-11.6)
[2020-01-18 09:56] LABS: APPEARANCE,URINE CLOUDY (CLEAR); BILIRUBIN,URINE NEGATIVE (NEGATIVE); GLUCOSE, URINE (UA) NEGATIVE (NEGATIVE); KETONES,URINE NEGATIVE (NEGATIVE); LEUKOCYTE ESTERASE ,URINE TRACE (NEGATIVE); NITRATE,URINE NEGATIVE (NEGATIVE); OCCULT BLOOD,URINE NEGATIVE (NEGATIVE); PH,URINE 6.5 (5.0-8.0); PROTEIN,URINE NEGATIVE (NEGATIVE); UROBILINOGEN,URINE 0.2 mg/dL (<=1.0)
[2020-01-18 10:01] LABS: AMPHET/METH SCREEN,URINE NEGATIVE (NEGATIVE); BARBITURATE SCREEN, URINE NEGATIVE (NEGATIVE); BENZODIAZEPINES SCREEN,URINE NEGATIVE (NEGATIVE); CANNABINOID SCREEN,URINE NEGATIVE (NEGATIVE); COCAINE SCREEN,URINE NEGATIVE (NEGATIVE); METHADONE SCREEN, URINE NEGATIVE (NEGATIVE); OPIATE SCREEN,URINE NEGATIVE (NEGATIVE)
[2020-01-18 10:03] LABS: PHENCYCLIDINE SCREEN,URINE NEGATIVE (NEGATIVE)
[2020-01-18 10:10] LABS: ALANINE AMINOTRANSFERASE 22 U/L (12-78); ALBUMIN 3.4 g/dL (3.4-5.0); ALKALINE PHOSPHATASE 147 U/L (46-116); ASPARTATE AMINOTRANSFERASE 32 U/L (15-37); BILIRUBIN,TOTAL 0.2 mg/dL (0.1-1.0); C-REACTIVE PROTEIN QUANT 0.15 mg/dL (0.00-0.30); FERRITIN 258 ng/mL (8-252); TOTAL PROTEIN, SERUM 7.2 g/dL (6.4-8.2)
[2020-01-18 10:13] LABS: BACTERIA,URINE Few /HPF (None Seen); RBC,URINE 0-2 /HPF (0-2)
[2020-01-18 10:14] LABS: SQUAMOUS EPITHELIAL CELL,UR Rare /LPF (None Seen)
[2020-01-18 10:14] LABS: ACETAMINOPHEN < 2 mcg/mL (10-30)
[2020-01-18] MEDS ORDERED: SODIUM BICARBONATE 150 MEQ in DEXTROSE 5%-WATER 1,000 ML IV ONE (11:00)
[2020-01-18 11:37] LABS: ABG A-A DIFF O2 27.3 mmHg (10-20.0); ABG BASE EXCESS -4.9 mmol/L (-2.0-3.0); ABG CARBOXYHEMOGLOBIN 3.7 % (0.0-1.5); ABG HCO3 21.2 mmol/L (22.0-26.0); ABG OXYGEN CONTENT 16.2 mL/dL (15.0-23.0); ABG OXYGEN SATURATION 96.3 % (95.0-98.0); ABG OXYHEMOGLOBIN 92.7 % (94.0-100.0); ABG PCO2 32 mmHg (35-45); ABG PH 7.413 (7.35-7.450); ABG TOTAL HEMOGLOBIN 12.4 G/dL (12.0-18.0); O2 DEVICE,BLOOD GAS ROOM AIR (ROOM AIR); PO2, ARTERIAL BG 84.7 mmHg (79.0-87.0); SITE, BLOOD GAS LFT RADIAL; SOURCE, BLOOD GAS ARTERIAL; TEMPERATURE, FAHRENHEIT, BG 98.6 FAHREN (96.0-98.6)
[2020-01-18] MEDS ORDERED: ONDANSETRON HCL 4 MG/2 ML VIAL IVP PRN ×2 (12:15→12:30)
[2020-01-18] MEDS ORDERED: BISACODYL 10 MG RECTAL RECTAL SUPPOSITORY PR PRN (12:15)
[2020-01-18] MEDS ORDERED: 0.9% SODIUM CHLORIDE 10 ML SYRINGE IVP PRN ×2 (12:15→12:30)
[2020-01-18] MEDS ORDERED: DOCUSATE SODIUM 100 MG CAPSULE PO PRN (12:15)
[2020-01-18] MEDS ORDERED: ACETAMINOPHEN 325 MG TABLET PO PRN (12:30)
[2020-01-18] MEDS ORDERED: LORazepam 2 MG TABLET PO ONE (13:00)
[2020-01-18 13:18] LABS: SALICYLATE 56.3 mg/dL (2.8-20.0)
[2020-01-18 16:23] VITALS: BP 122/78
[2020-01-18] MEDS: SODIUM BICARBONATE 150 MEQ in DEXTROSE 5%-WATER 1,000 ML IV SCH (20:59)
[2020-01-18 21:12] VITALS: BP 105/64
[2020-01-19 00:39] VITALS: BP 109/60
[2020-01-19 01:45] LABS: ANION GAP 6 mmol/L (8-16); CALCIUM, TOTAL 7.6 mg/dL (8.8-10.5); CARBON DIOXIDE 30 mmol/L (22-29); CHLORIDE 104 mmol/L (98-107); CREATININE 0.73 mg/dL (0.60-1.30); GLOMERULAR FILTR. RATE CALC > 60 mL/min (>60); GLUCOSE,RANDOM 95 mg/dL (70-110); SODIUM SERUM 140 mmol/L (136-145); UREA NITROGEN, BLOOD 17 mg/dL (7-18)
[2020-01-19 01:55] LABS: POTASSIUM 2.6 mmol/L (3.5-5.1)
[2020-01-19] MEDS ORDERED: SODIUM CHLORIDE 0.9% 500 ML IV ONE (02:11)
[2020-01-19] MEDS ORDERED: POTASSIUM CHLORIDE 20 MEQ ER TABLET PO PRN (02:15)
[2020-01-19] MEDS: POTASSIUM CHL 10 MEQ/WATER 50 ML IV PRN ×4 (02:16→05:53)
[2020-01-19 05:30] VITALS: BP 123/73
[2020-01-19 06:26] LABS: BASOPHILS % (AUTO) 0.5 % (0.0-2.0); EOSINOPHILS % (AUTO) 1.3 % (1.0-6.0); HEMATOCRIT 36.4 % (36-46); HEMOGLOBIN 12.2 g/dL (12.0-16.0); LYMPHOCYTES % (AUTO) 13.2 % (22.0-44.0); MEAN CORPUSCULAR HEMOGLOBIN 31.5 pg (26.0-34.0); MEAN CORPUSCULAR HGB CONC 33.6 G/dL (31.0-37.0); MEAN CORPUSCULAR VOLUME 94 fL (80-100); MONOCYTES # (AUTO) 0.5 K/uL (0.1-1.0); MONOCYTES % (AUTO) 6.3 % (2.0-9.0); NEUTROPHILS # (AUTO) 6.1 K/uL (1.8-7.7); NEUTROPHILS % (AUTO) 78.7 % (40.0-70.0); PLATELET COUNT (AUTO) 299 K/uL (150-450); RED BLOOD CELL COUNT(AUTO) 3.89 MIL/uL (4.00-5.20); RED CELL DISTRIBUTION WIDTH 13.1 % (11.5-14.5)
[2020-01-19 06:43] LABS: INR 1.1 (0.9-1.1); PROTHROMBIN TIME 11.6 SEC (9.4-11.6)
[2020-01-19 06:47] LABS: ALANINE AMINOTRANSFERASE 21 U/L (12-78); ALBUMIN 2.8 g/dL (3.4-5.0); ALKALINE PHOSPHATASE 124 U/L (46-116); ANION GAP 7 mmol/L (8-16); ASPARTATE AMINOTRANSFERASE 25 U/L (15-37); BILIRUBIN,TOTAL 0.2 mg/dL (0.1-1.0); CALCIUM, TOTAL 7.5 mg/dL (8.8-10.5); CARBON DIOXIDE 29 mmol/L (22-29); CHLORIDE 103 mmol/L (98-107); CREATININE 0.54 mg/dL (0.60-1.30); GLOMERULAR FILTR. RATE CALC > 60 mL/min (>60); GLUCOSE,RANDOM 91 mg/dL (70-110); SODIUM SERUM 139 mmol/L (136-145); TOTAL PROTEIN, SERUM 5.9 g/dL (6.4-8.2); UREA NITROGEN, BLOOD 15 mg/dL (7-18)
[2020-01-19 06:58] LABS: POTASSIUM 2.9 mmol/L (3.5-5.1)
[2020-01-19 08:40] VITALS: BP 126/75
[2020-01-19] MEDS ORDERED: PANTOPRAZOLE SODIUM 40 MG DR TABLET PO SCH (09:00)
[2020-01-19 09:14] LABS: POTASSIUM 3.2 mmol/L (3.5-5.1)
[2020-01-19] MEDS: SODIUM BICARBONATE 150 MEQ in DEXTROSE 5%-WATER 1,000 ML IV SCH (09:20)
[2020-01-19 11:28] VITALS: BP 99/76
[2020-01-19] MEDS ORDERED: HALOPERIDOL 5 MG TABLET PO PRN (13:15)
[2020-01-19] MEDS ORDERED: GABAPENTIN 400 MG CAPSULE PO SCH (16:00)
[2020-01-19] MEDS ORDERED: HALOPERIDOL 5 MG TABLET PO SCH (21:00)
[2020-01-19] MEDS ORDERED: BENZTROPINE MESYLATE 0.5 MG TABLET PO SCH (21:00)
[2020-01-20] MEDS ORDERED: PARoxetine HCL 20 MG TABLET PO SCH (09:00)
[2020-01-20] MEDS ORDERED: MULTIVITAMINS WITH MINERALS, THERAPEUTIC TABLET PO SCH (09:00)
== END 2020-01-19 16:19 | DRG 918 ==
LOC: EMS 08:39 → 6N 13:50 → 5N 13:51 → 6N 01-19 13:50
PROVIDERS: ADMIT Internal Medicine; ATTEND Internal Medicine
DX: T39.012A Poisoning by aspirin, intentional self-harm, initial encounter (principal); E44.0 Moderate protein-calorie malnutrition; R45.851 Suicidal ideations; Z68.1 Body mass index [BMI] 19.9 or less, adult; F25.9 Schizoaffective disorder, unspecified; F17.200 Nicotine dependence, unspecified, uncomplicated; E87.6 Hypokalemia; K21.9 Gastro-esophageal reflux disease without esophagitis; R45.87 Impulsiveness; G89.29 Other chronic pain; Z88.8 Allergy status to other drugs, medicaments and biological substances; Z79.899 Other long term (current) drug therapy; Y92.89 Other specified places as the place of occurrence of the external cause
CPT/HCPCS: 36600; 51702; 82728; 82805; 83735; 84132; 84145; 86140; 87040; 87635; 93005; 99291; G0480; G0481; J3480; J3490; J7030; J7040; J7060

== ENCOUNTER 2020-01-19 16:30 | Inpatient (IN) | payer MEDICARE, MEDICAID ==
[~2020-01-19] VITALS: Ht 147.3 cm; Wt 39.9 kg
[2020-01-19] MEDS ORDERED: GuaiFENesin/D-METHORPHAN [SUGAR-FREE] 200-20MG/10 ML SYRUP UDCUP PO PRN (17:15)
[2020-01-19] MEDS ORDERED: ZOLPIDEM TARTRATE 10 MG TABLET PO PRN (17:15)
[2020-01-19] MEDS ORDERED: PROMETHAZINE HCL 25 MG TABLET PO PRN (17:15)
[2020-01-19] MEDS ORDERED: ACETAMINOPHEN 325 MG TABLET PO PRN (17:15)
[2020-01-19] MEDS ORDERED: HALOPERIDOL 5 MG TABLET PO PRN (17:15)
[2020-01-19] MEDS ORDERED: LOPERAMIDE HCL 2 MG CAPSULE PO PRN (17:15)
[2020-01-19] MEDS ORDERED: MAG HYDROX/AL HYDROX/SIMETH ES 30 ML SUSPENSION UDCUP PO PRN (17:15)
[2020-01-19] MEDS ORDERED: MAGNESIUM HYDROXIDE SUSPENSION 30 ML UDCUP PO PRN (17:15)
[2020-01-19 17:52] VITALS: BP 138/92
[2020-01-19] MEDS: LORazepam 2 MG TABLET PO PRN (17:54)
[2020-01-19] MEDS: HALOPERIDOL 5 MG TABLET PO SCH (18:30)
[2020-01-19] MEDS: THIAMINE HCL 100 MG TABLET PO SCH (18:30)
[2020-01-19] MEDS: GABAPENTIN 400 MG CAPSULE PO SCH (18:31)
[2020-01-19] MEDS: BENZTROPINE MESYLATE 1 MG TABLET PO SCH (18:31)
[2020-01-19 20:13] VITALS: BP 115/79
[2020-01-20 06:49] LABS: ALANINE AMINOTRANSFERASE 21 U/L (12-78); ALKALINE PHOSPHATASE 123 U/L (46-116); ANION GAP 6 mmol/L (8-16); ASPARTATE AMINOTRANSFERASE 22 U/L (15-37); BILIRUBIN,TOTAL 0.2 mg/dL (0.1-1.0); CALCIUM, TOTAL 8.3 mg/dL (8.8-10.5); CARBON DIOXIDE 29 mmol/L (22-29); CHLORIDE 105 mmol/L (98-107); CREATININE 0.55 mg/dL (0.60-1.30); GLOMERULAR FILTR. RATE CALC > 60 mL/min (>60); GLUCOSE,RANDOM 95 mg/dL (70-110); POTASSIUM 3.8 mmol/L (3.5-5.1); SODIUM SERUM 140 mmol/L (136-145); TOTAL PROTEIN, SERUM 6.1 g/dL (6.4-8.2); UREA NITROGEN, BLOOD 13 mg/dL (7-18)
[2020-01-20] MEDS: PANTOPRAZOLE SODIUM 40 MG DR TABLET PO SCH (08:00)
[2020-01-20] MEDS: GABAPENTIN 400 MG CAPSULE PO SCH ×3 (08:00→16:46)
[2020-01-20] MEDS: MULTIVITAMINS WITH MINERALS, THERAPEUTIC TABLET PO SCH (08:00)
[2020-01-20] MEDS: BENZTROPINE MESYLATE 1 MG TABLET PO SCH ×2 (08:00→16:46)
[2020-01-20] MEDS: THIAMINE HCL 100 MG TABLET PO SCH ×2 (08:01→16:46)
[2020-01-20] MEDS: FOLIC ACID 1 MG TABLET PO SCH (08:01)
[2020-01-20] MEDS: HALOPERIDOL 5 MG TABLET PO SCH ×2 (08:01→16:46)
[2020-01-20] MEDS: NICOTINE 21 MG/24 HOUR PATCH TD SCH (08:02)
[2020-01-20] MEDS ORDERED: PARoxetine HCL 20 MG TABLET PO SCH (09:00)
[2020-01-20 09:53] VITALS: BP 126/91
[2020-01-20 11:11] VITALS: BP 114/77
[2020-01-20] MEDS: LORazepam 2 MG TABLET PO PRN (11:13)
[2020-01-20] MEDS ORDERED: SODIUM CHLORIDE 0.9% 100 ML ONE (14:57)
[2020-01-20] MEDS ORDERED: IOVERSOL 320 MG/ML 100 ML VIAL ONE (14:57)
[2020-01-20 16:12] VITALS: BP 121/60
[2020-01-21] MEDS: MULTIVITAMINS WITH MINERALS, THERAPEUTIC TABLET PO SCH (08:13)
[2020-01-21] MEDS: BENZTROPINE MESYLATE 1 MG TABLET PO SCH ×2 (08:13→16:23)
[2020-01-21] MEDS: GABAPENTIN 400 MG CAPSULE PO SCH ×3 (08:13→16:23)
[2020-01-21] MEDS: HALOPERIDOL 5 MG TABLET PO SCH ×2 (08:14→16:22)
[2020-01-21] MEDS: PANTOPRAZOLE SODIUM 40 MG DR TABLET PO SCH (08:14)
[2020-01-21] MEDS: FOLIC ACID 1 MG TABLET PO SCH (08:14)
[2020-01-21] MEDS: NICOTINE 21 MG/24 HOUR PATCH TD SCH (08:15)
[2020-01-21] MEDS: THIAMINE HCL 100 MG TABLET PO SCH ×2 (08:15→16:23)
[2020-01-21 08:58] VITALS: BP 125/95
[2020-01-21] MEDS ORDERED: PARoxetine HCL 10 MG TABLET PO SCH (09:00)
[2020-01-21] MEDS: LORazepam 2 MG TABLET PO PRN (12:29)
[2020-01-21 17:00] VITALS: BP 131/76
[2020-01-21] MEDS ORDERED: AZIT-84 PO (18:39)
[2020-01-22 08:29] VITALS: BP 101/74
[2020-01-22] MEDS: FOLIC ACID 1 MG TABLET PO SCH (08:44)
[2020-01-22] MEDS: MULTIVITAMINS WITH MINERALS, THERAPEUTIC TABLET PO SCH (08:44)
[2020-01-22] MEDS: PANTOPRAZOLE SODIUM 40 MG DR TABLET PO SCH (08:45)
[2020-01-22] MEDS: PARoxetine HCL 10 MG TABLET PO SCH ×3 (08:45→16:49)
[2020-01-22] MEDS: BENZTROPINE MESYLATE 1 MG TABLET PO SCH ×2 (08:45→16:48)
[2020-01-22] MEDS: HALOPERIDOL 5 MG TABLET PO SCH ×2 (08:45→16:48)
[2020-01-22] MEDS: THIAMINE HCL 100 MG TABLET PO SCH ×2 (08:45→16:48)
[2020-01-22] MEDS: GABAPENTIN 400 MG CAPSULE PO SCH ×3 (08:45→16:49)
[2020-01-22] MEDS: NICOTINE 21 MG/24 HOUR PATCH TD SCH (08:46)
[2020-01-22] MEDS: LORazepam 2 MG TABLET PO PRN ×2 (08:46→16:49)
[2020-01-22 16:00] VITALS: BP 118/78
[2020-01-23] MEDS: MULTIVITAMINS WITH MINERALS, THERAPEUTIC TABLET PO SCH (08:04)
[2020-01-23] MEDS: BENZTROPINE MESYLATE 1 MG TABLET PO SCH ×2 (08:04→16:23)
[2020-01-23] MEDS: HALOPERIDOL 5 MG TABLET PO SCH ×2 (08:04→16:23)
[2020-01-23] MEDS: FOLIC ACID 1 MG TABLET PO SCH (08:04)
[2020-01-23] MEDS: THIAMINE HCL 100 MG TABLET PO SCH ×2 (08:04→16:23)
[2020-01-23] MEDS: NICOTINE 21 MG/24 HOUR PATCH TD SCH (08:04)
[2020-01-23] MEDS: GABAPENTIN 400 MG CAPSULE PO SCH ×3 (08:04→16:23)
[2020-01-23] MEDS: PARoxetine HCL 10 MG TABLET PO SCH ×3 (08:04→16:23)
[2020-01-23] MEDS: PANTOPRAZOLE SODIUM 40 MG DR TABLET PO SCH (08:04)
[2020-01-23 09:00] VITALS: BP 104/62
[2020-01-23] MEDS: LORazepam 2 MG TABLET PO PRN (14:18)
[2020-01-23 16:00] VITALS: BP 109/67
[2020-01-24] MEDS: THIAMINE HCL 100 MG TABLET PO SCH ×2 (08:20→16:19)
[2020-01-24] MEDS: FOLIC ACID 1 MG TABLET PO SCH (08:21)
[2020-01-24] MEDS: HALOPERIDOL 5 MG TABLET PO SCH ×2 (08:21→16:20)
[2020-01-24] MEDS: PARoxetine HCL 10 MG TABLET PO SCH ×3 (08:21→16:19)
[2020-01-24] MEDS: MULTIVITAMINS WITH MINERALS, THERAPEUTIC TABLET PO SCH (08:21)
[2020-01-24] MEDS: PANTOPRAZOLE SODIUM 40 MG DR TABLET PO SCH (08:21)
[2020-01-24] MEDS: GABAPENTIN 400 MG CAPSULE PO SCH ×3 (08:21→16:19)
[2020-01-24] MEDS: NICOTINE 21 MG/24 HOUR PATCH TD SCH (08:21)
[2020-01-24] MEDS: BENZTROPINE MESYLATE 1 MG TABLET PO SCH ×2 (08:21→16:19)
[2020-01-24 09:30] VITALS: BP 118/78
[2020-01-24] MEDS: LORazepam 2 MG TABLET PO PRN (12:38)
[2020-01-24 20:36] VITALS: BP 114/59
[2020-01-25 08:00] VITALS: BP 118/46
[2020-01-25] MEDS: FOLIC ACID 1 MG TABLET PO SCH (09:18)
[2020-01-25] MEDS: GABAPENTIN 400 MG CAPSULE PO SCH ×3 (09:18→16:25)
[2020-01-25] MEDS: HALOPERIDOL 5 MG TABLET PO SCH ×2 (09:18→16:25)
[2020-01-25] MEDS: BENZTROPINE MESYLATE 1 MG TABLET PO SCH ×2 (09:18→16:25)
[2020-01-25] MEDS: MULTIVITAMINS WITH MINERALS, THERAPEUTIC TABLET PO SCH (09:19)
[2020-01-25] MEDS: PARoxetine HCL 10 MG TABLET PO SCH ×3 (09:19→16:25)
[2020-01-25] MEDS: PANTOPRAZOLE SODIUM 40 MG DR TABLET PO SCH (09:19)
[2020-01-25] MEDS: NICOTINE 21 MG/24 HOUR PATCH TD SCH (09:19)
[2020-01-25] MEDS: THIAMINE HCL 100 MG TABLET PO SCH ×2 (09:19→16:25)
[2020-01-25] MEDS: LORazepam 2 MG TABLET PO PRN ×2 (09:19→17:10)
[2020-01-25 16:56] VITALS: BP 94/70
[2020-01-26] MEDS: FOLIC ACID 1 MG TABLET PO SCH (08:11)
[2020-01-26] MEDS: MULTIVITAMINS WITH MINERALS, THERAPEUTIC TABLET PO SCH (08:11)
[2020-01-26] MEDS: HALOPERIDOL 5 MG TABLET PO SCH ×2 (08:12→16:17)
[2020-01-26] MEDS: BENZTROPINE MESYLATE 1 MG TABLET PO SCH ×2 (08:12→16:17)
[2020-01-26] MEDS: NICOTINE 21 MG/24 HOUR PATCH TD SCH (08:12)
[2020-01-26] MEDS: PARoxetine HCL 10 MG TABLET PO SCH ×3 (08:12→16:17)
[2020-01-26] MEDS: GABAPENTIN 400 MG CAPSULE PO SCH ×3 (08:12→16:17)
[2020-01-26 08:30] VITALS: BP 157/92
[2020-01-26] MEDS: PANTOPRAZOLE SODIUM 40 MG DR TABLET PO SCH (09:12)
[2020-01-26] MEDS: THIAMINE HCL 100 MG TABLET PO SCH ×2 (09:12→16:17)
[2020-01-26] MEDS: LORazepam 2 MG TABLET PO PRN (09:38)
[2020-01-26 16:59] VITALS: BP 107/67
[2020-01-27] MEDS: LORazepam 2 MG TABLET PO PRN ×3 (06:49→17:01)
[2020-01-27] MEDS: MULTIVITAMINS WITH MINERALS, THERAPEUTIC TABLET PO SCH (09:05)
[2020-01-27] MEDS: BENZTROPINE MESYLATE 1 MG TABLET PO SCH ×2 (09:05→15:57)
[2020-01-27] MEDS: GABAPENTIN 400 MG CAPSULE PO SCH ×3 (09:05→15:57)
[2020-01-27] MEDS: PANTOPRAZOLE SODIUM 40 MG DR TABLET PO SCH (09:05)
[2020-01-27] MEDS: HALOPERIDOL 5 MG TABLET PO SCH ×2 (09:05→15:57)
[2020-01-27] MEDS: THIAMINE HCL 100 MG TABLET PO SCH ×2 (09:06→15:57)
[2020-01-27] MEDS: PARoxetine HCL 10 MG TABLET PO SCH ×3 (09:06→15:57)
[2020-01-27] MEDS: FOLIC ACID 1 MG TABLET PO SCH (09:06)
[2020-01-27] MEDS: NICOTINE 21 MG/24 HOUR PATCH TD SCH (09:07)
[2020-01-27 12:57] VITALS: BP 106/68
[2020-01-27] MEDS ORDERED: GABA-533 PO (16:14)
[2020-01-27] MEDS ORDERED: BENZ1TAB10 PO (16:14)
[2020-01-27] MEDS ORDERED: HALO5TAB2 PO (16:14)
[2020-01-27] MEDS ORDERED: PARO10TA71 PO (16:14)
[2020-01-27 16:40] VITALS: BP 112/75
[2020-01-28] MEDS: GABAPENTIN 400 MG CAPSULE PO SCH ×2 (08:48→12:12)
[2020-01-28] MEDS: FOLIC ACID 1 MG TABLET PO SCH (08:48)
[2020-01-28] MEDS: BENZTROPINE MESYLATE 1 MG TABLET PO SCH (08:48)
[2020-01-28] MEDS: PARoxetine HCL 10 MG TABLET PO SCH ×2 (08:48→13:06)
[2020-01-28] MEDS: MULTIVITAMINS WITH MINERALS, THERAPEUTIC TABLET PO SCH (08:48)
[2020-01-28] MEDS: HALOPERIDOL 5 MG TABLET PO SCH (08:48)
[2020-01-28] MEDS: THIAMINE HCL 100 MG TABLET PO SCH (08:48)
[2020-01-28] MEDS: PANTOPRAZOLE SODIUM 40 MG DR TABLET PO SCH (08:48)
[2020-01-28] MEDS: NICOTINE 21 MG/24 HOUR PATCH TD SCH (08:49)
[2020-01-28] MEDS: LORazepam 2 MG TABLET PO PRN (12:12)
[2020-01-28 12:26] VITALS: BP 100/54
== END 2020-01-28 14:45 | disposition home or self-care (01) | DRG 885 ==
LOC: 3EX 16:30
PROVIDERS: ADMIT Psychiatry & Neurology Psychiatry; ATTEND Psychiatry & Neurology Psychiatry
DX: F25.1 Schizoaffective disorder, depressive type (principal); B19.20 Unspecified viral hepatitis C without hepatic coma; F17.210 Nicotine dependence, cigarettes, uncomplicated; G89.29 Other chronic pain; J34.2 Deviated nasal septum; K21.9 Gastro-esophageal reflux disease without esophagitis; Z79.83 Long term (current) use of bisphosphonates; Z81.8 Family history of other mental and behavioral disorders; Z91.19 Patient's noncompliance with other medical treatment and regimen; Z79.899 Other long term (current) drug therapy
CPT/HCPCS: 71260; 80173; 87081; G0378; J7050

== ENCOUNTER 2020-02-03 14:38 | Inpatient (IN) | payer MEDICARE, MEDICAID ==
[~2020-02-03 14:38] MED LIST changes: -ALEN70TA19 PO; -AZITH500IV PO; -PARO-37 PO; +PARO10TA71 PO
[2020-02-03] MEDS ORDERED: BENZ1TAB10 PO (15:52)
[2020-02-03] MEDS ORDERED: HALO10 PO (15:52)
[2020-02-03] MEDS ORDERED: GABA-533 PO (15:52)
[2020-02-03] MEDS ORDERED: PARO10TA89 PO (15:52)
[2020-02-03] MEDS ORDERED: MAGNESIUM HYDROXIDE SUSPENSION 30 ML UDCUP PO PRN (16:30)
[2020-02-03] MEDS ORDERED: GuaiFENesin/D-METHORPHAN [SUGAR-FREE] 200-20MG/10 ML SYRUP UDCUP PO PRN (16:30)
[2020-02-03] MEDS ORDERED: HALOPERIDOL 5 MG TABLET PO PRN (16:30)
[2020-02-03] MEDS ORDERED: LOPERAMIDE HCL 2 MG CAPSULE PO PRN (16:30)
[2020-02-03] MEDS ORDERED: ACETAMINOPHEN 325 MG TABLET PO PRN (16:30)
[2020-02-03] MEDS ORDERED: ZOLPIDEM TARTRATE 10 MG TABLET PO PRN (16:30)
[2020-02-03 16:34] VITALS: BP 126/79
[2020-02-03] MEDS: THIAMINE HCL 100 MG TABLET PO SCH (16:58)
[2020-02-03] MEDS: GABAPENTIN 400 MG CAPSULE PO SCH (16:58)
[2020-02-03] MEDS: BENZTROPINE MESYLATE 1 MG TABLET PO SCH (16:59)
[2020-02-03] MEDS: HALOPERIDOL 5 MG TABLET PO SCH (16:59)
[2020-02-03] MEDS: PARoxetine HCL 10 MG TABLET PO SCH (16:59)
[2020-02-03 17:05] VITALS: BP 117/72
[2020-02-03] MEDS ORDERED: INFLUENZA VIRUS VACCINE QVS 2019-20 (3YR+)/PF 60 MCG/0.5 ML SYRINGE IM ONE (17:30)
[2020-02-03] MEDS: NICOTINE 21 MG/24 HOUR PATCH TD SCH (18:43)
[2020-02-04 00:32] VITALS: BP 116/77
[2020-02-04] MEDS: THIAMINE HCL 100 MG TABLET PO SCH ×2 (08:05→16:28)
[2020-02-04] MEDS: BENZTROPINE MESYLATE 1 MG TABLET PO SCH ×2 (08:05→16:27)
[2020-02-04] MEDS: MULTIVITAMINS WITH MINERALS, THERAPEUTIC TABLET PO SCH (08:05)
[2020-02-04] MEDS: FOLIC ACID 1 MG TABLET PO SCH (08:06)
[2020-02-04] MEDS: GABAPENTIN 400 MG CAPSULE PO SCH ×3 (08:06→16:27)
[2020-02-04] MEDS: HALOPERIDOL 5 MG TABLET PO SCH ×2 (08:06→16:27)
[2020-02-04] MEDS: PARoxetine HCL 10 MG TABLET PO SCH ×3 (08:06→16:27)
[2020-02-04 08:07] VITALS: BP 127/73
[2020-02-04] MEDS: LORazepam 2 MG TABLET PO PRN (08:15)
[2020-02-04] MEDS: NICOTINE 21 MG/24 HOUR PATCH TD SCH (09:43)
[2020-02-04 16:04] VITALS: BP 118/66
[2020-02-05 06:02] VITALS: BP 110/63
[2020-02-05] MEDS: LORazepam 2 MG TABLET PO PRN (06:08)
[2020-02-05] MEDS: HALOPERIDOL 5 MG TABLET PO SCH ×2 (08:00→16:46)
[2020-02-05] MEDS: FOLIC ACID 1 MG TABLET PO SCH (08:00)
[2020-02-05] MEDS: THIAMINE HCL 100 MG TABLET PO SCH ×2 (08:00→16:46)
[2020-02-05] MEDS: MULTIVITAMINS WITH MINERALS, THERAPEUTIC TABLET PO SCH (08:00)
[2020-02-05] MEDS: PARoxetine HCL 10 MG TABLET PO SCH ×3 (08:00→16:46)
[2020-02-05] MEDS: GABAPENTIN 400 MG CAPSULE PO SCH ×3 (08:00→16:46)
[2020-02-05] MEDS: BENZTROPINE MESYLATE 1 MG TABLET PO SCH ×2 (08:01→16:46)
[2020-02-05] MEDS: NICOTINE 21 MG/24 HOUR PATCH TD SCH (08:10)
[2020-02-05 09:07] VITALS: BP 97/62
[2020-02-05 16:05] VITALS: BP 110/69
[2020-02-06 00:44] VITALS: BP 105/72
[2020-02-06] MEDS: LORazepam 2 MG TABLET PO PRN (06:41)
[2020-02-06] MEDS: THIAMINE HCL 100 MG TABLET PO SCH ×2 (08:17→16:11)
[2020-02-06] MEDS: MULTIVITAMINS WITH MINERALS, THERAPEUTIC TABLET PO SCH (08:17)
[2020-02-06] MEDS: FOLIC ACID 1 MG TABLET PO SCH (08:17)
[2020-02-06] MEDS: PARoxetine HCL 10 MG TABLET PO SCH ×3 (08:17→16:11)
[2020-02-06] MEDS: BENZTROPINE MESYLATE 1 MG TABLET PO SCH ×2 (08:17→16:11)
[2020-02-06] MEDS: GABAPENTIN 400 MG CAPSULE PO SCH ×3 (08:17→16:11)
[2020-02-06] MEDS: HALOPERIDOL 5 MG TABLET PO SCH ×2 (08:18→16:11)
[2020-02-06 08:21] LABS: CHOL/HDL RATIO 3.3 (3.9-5.7)
[2020-02-06 08:49] VITALS: BP 100/60
[2020-02-06] MEDS: NICOTINE 21 MG/24 HOUR PATCH TD SCH (10:25)
[2020-02-06 16:07] VITALS: BP 114/79
[2020-02-06] MEDS: MAG HYDROX/AL HYDROX/SIMETH ES 30 ML SUSPENSION UDCUP PO PRN ×2 (17:02→20:34)
[2020-02-07 04:48] VITALS: BP 121/88
[2020-02-07] MEDS: FOLIC ACID 1 MG TABLET PO SCH (08:03)
[2020-02-07] MEDS: GABAPENTIN 400 MG CAPSULE PO SCH ×3 (08:03→16:23)
[2020-02-07] MEDS: MULTIVITAMINS WITH MINERALS, THERAPEUTIC TABLET PO SCH (08:03)
[2020-02-07] MEDS: NICOTINE 21 MG/24 HOUR PATCH TD SCH (08:03)
[2020-02-07] MEDS: THIAMINE HCL 100 MG TABLET PO SCH ×2 (08:03→16:23)
[2020-02-07] MEDS: PARoxetine HCL 10 MG TABLET PO SCH ×3 (08:03→16:23)
[2020-02-07] MEDS: BENZTROPINE MESYLATE 1 MG TABLET PO SCH ×2 (08:03→16:23)
[2020-02-07] MEDS: HALOPERIDOL 5 MG TABLET PO SCH ×2 (08:04→16:23)
[2020-02-07] MEDS: LORazepam 2 MG TABLET PO PRN (08:49)
[2020-02-07 09:07] VITALS: BP 120/86
[2020-02-07] MEDS ORDERED: HALO5TAB2 PO (14:20)
[2020-02-07] MEDS ORDERED: GABA-533 PO (14:20)
[2020-02-07] MEDS ORDERED: BENZ1TAB10 PO (14:20)
[2020-02-07] MEDS ORDERED: PARO10TA71 PO (14:20)
[2020-02-07 16:07] VITALS: BP 129/72
== END 2020-02-07 17:00 | disposition home or self-care (01) | DRG 885 ==
LOC: B2X 16:11
PROVIDERS: ADMIT Psychiatry & Neurology Psychiatry; ATTEND Psychiatry & Neurology Psychiatry
DX: F25.1 Schizoaffective disorder, depressive type (principal); R45.851 Suicidal ideations; F17.210 Nicotine dependence, cigarettes, uncomplicated; F41.9 Anxiety disorder, unspecified; G89.29 Other chronic pain; M25.551 Pain in right hip; Z86.59 Personal history of other mental and behavioral disorders; Z87.11 Personal history of peptic ulcer disease; Z91.19 Patient's noncompliance with other medical treatment and regimen; Z63.9 Problem related to primary support group, unspecified
CPT/HCPCS: 87081

== ENCOUNTER 2020-05-02 14:30 | Emergency (ER) | payer MEDICARE, OTHER ==
[~2020-05-02] VITALS: Ht 147.3 cm; Wt 40.0 kg
[2020-05-02 14:32] VITALS: BP 125/76
[2020-05-02] MEDS ORDERED: ACETAMINOPHEN 325 MG TABLET PO ONE (15:30)
[2020-05-02] MEDS ORDERED: HALOPERIDOL 5 MG TABLET PO ONE (15:45)
== END 2020-05-02 17:17 | disposition home or self-care (01) ==
LOC: EMS 14:46
DX: Z03.818 Encounter for observation for suspected exposure to other biological agents ruled out (principal); M25.512 Pain in left shoulder; F20.9 Schizophrenia, unspecified; F17.210 Nicotine dependence, cigarettes, uncomplicated; Z88.8 Allergy status to other drugs, medicaments and biological substances; Z79.899 Other long term (current) drug therapy
CPT/HCPCS: 73030; 99284; U0003; Z7502; Z7610

== ENCOUNTER 2020-08-25 11:56 | Emergency (ER) | payer MEDICARE, OTHER ==
[~2020-08-25] VITALS: Ht 147.3 cm; Wt 45.0 kg
[2020-08-25] MEDS ORDERED: DULO20CA27 PO (12:04)
[2020-08-25] MEDS: IBUPROFEN 600 MG TABLET PO ONE ×2 (12:55→13:44)
[2020-08-25 13:40] VITALS: BP 125/69
== END 2020-08-25 15:05 | disposition home or self-care (01) ==
LOC: EMS 11:56
DX: S62.616A Displaced fracture of proximal phalanx of right little finger, initial encounter for closed fracture (principal); K21.9 Gastro-esophageal reflux disease without esophagitis; F20.9 Schizophrenia, unspecified; F17.210 Nicotine dependence, cigarettes, uncomplicated; G89.29 Other chronic pain; Z91.018 Allergy to other foods; W01.0XXA Fall on same level from slipping, tripping and stumbling without subsequent striking against object, initial encounter; Y93.01 Activity, walking, marching and hiking; Y92.89 Other specified places as the place of occurrence of the external cause; Y99.8 Other external cause status

== ENCOUNTER 2020-08-31 08:26 | Inpatient (IN) | payer MEDICARE, MEDICAID ==
[~2020-08-31] VITALS: Ht 147.3 cm; Wt 43.5 kg
[~2020-08-31 08:26] MED LIST changes: +DULO20CA27 PO; -PARO10TA71 PO
[2020-08-31 09:11] LABS: BASOPHILS % (AUTO) 0.4 % (0.0-2.0); EOSINOPHILS % (AUTO) 1.1 % (1.0-6.0); HEMATOCRIT 39.4 % (36-46); HEMOGLOBIN 13.4 g/dL (12.0-16.0); LYMPHOCYTES # (AUTO) 1.2 K/uL (1.0-4.8); MEAN CORPUSCULAR HEMOGLOBIN 31.8 pg (26.0-34.0); MEAN CORPUSCULAR VOLUME 94 fL (80-100); MONOCYTES # (AUTO) 0.8 K/uL (0.1-1.0); MONOCYTES % (AUTO) 9.2 % (2.0-9.0); NEUTROPHILS # (AUTO) 6.6 K/uL (1.8-7.7); NEUTROPHILS % (AUTO) 75.3 % (40.0-70.0); PLATELET COUNT (AUTO) 270 K/uL (150-450); RED BLOOD CELL COUNT(AUTO) 4.22 MIL/uL (4.00-5.20); RED CELL DISTRIBUTION WIDTH 13.8 % (11.5-14.5)
[2020-08-31 09:21] LABS: ANION GAP 7 mmol/L (8-16); CALCIUM, TOTAL 9.4 mg/dL (8.8-10.5); CARBON DIOXIDE 29 mmol/L (22-29); CHLORIDE 100 mmol/L (98-107); CREATININE 0.77 mg/dL (0.60-1.30); GLOMERULAR FILTR. RATE CALC > 60 mL/min (>60); GLUCOSE,RANDOM 94 mg/dL (70-110); POTASSIUM 4.8 mmol/L (3.5-5.1); SODIUM SERUM 136 mmol/L (136-145); UREA NITROGEN, BLOOD 22 mg/dL (7-18)
[2020-08-31 09:25] LABS: AMPHET/METH SCREEN,URINE NEGATIVE (NEGATIVE); BARBITURATE SCREEN, URINE NEGATIVE (NEGATIVE); BENZODIAZEPINES SCREEN,URINE NEGATIVE (NEGATIVE); CANNABINOID SCREEN,URINE NEGATIVE (NEGATIVE); METHADONE SCREEN, URINE NEGATIVE (NEGATIVE); OPIATE SCREEN,URINE NEGATIVE (NEGATIVE); PHENCYCLIDINE SCREEN,URINE NEGATIVE (NEGATIVE)
[2020-08-31 09:26] LABS: ALANINE AMINOTRANSFERASE 29 U/L (12-78); ALBUMIN 3.7 g/dL (3.4-5.0); ALKALINE PHOSPHATASE 92 U/L (46-116); ASPARTATE AMINOTRANSFERASE 27 U/L (15-37); BILIRUBIN,TOTAL 0.3 mg/dL (0.1-1.0); TOTAL PROTEIN, SERUM 7.7 g/dL (6.4-8.2)
[2020-08-31 09:33] LABS: COCAINE SCREEN,URINE NEGATIVE (NEGATIVE)
[2020-08-31] MEDS ORDERED: LORazepam 1 MG TABLET PO ONE (10:15)
[2020-08-31 10:48] LABS: COVID AG,FIA SOURCE NASOPHARYNGEAL
[2020-08-31] MEDS ORDERED: MAGNESIUM HYDROXIDE SUSPENSION 30 ML UDCUP PO PRN (11:45)
[2020-08-31] MEDS ORDERED: TUBERCULIN, PURIFIED PROTEIN DERIVATIVE 5 TU/0.1 ML SYRINGE ID ONE (11:45)
[2020-08-31] MEDS ORDERED: HALOPERIDOL 5 MG TABLET PO PRN (11:45)
[2020-08-31] MEDS ORDERED: PROMETHAZINE HCL 25 MG TABLET PO PRN (11:45)
[2020-08-31] MEDS ORDERED: ZOLPIDEM TARTRATE 10 MG TABLET PO PRN (11:45)
[2020-08-31] MEDS ORDERED: GuaiFENesin/D-METHORPHAN [SUGAR-FREE] 200-20MG/10 ML SYRUP UDCUP PO PRN (11:45)
[2020-08-31] MEDS ORDERED: LOPERAMIDE HCL 2 MG CAPSULE PO PRN (11:45)
[2020-08-31] MEDS ORDERED: MAG HYDROX/AL HYDROX/SIMETH ES 30 ML SUSPENSION UDCUP PO PRN (11:45)
[2020-08-31] MEDS: THIAMINE 100 MG TABLET PO SCH (13:30)
[2020-08-31] MEDS: BENZTROPINE MESYLATE 0.5 MG TABLET PO SCH ×2 (13:30→16:48)
[2020-08-31] MEDS: GABAPENTIN 100 MG CAPSULE PO SCH ×3 (13:30→21:01)
[2020-08-31] MEDS: HALOPERIDOL 1 MG TABLET PO SCH ×3 (13:31→21:01)
[2020-08-31] MEDS: PARoxetine HCL 10 MG TABLET PO SCH (13:31)
[2020-08-31 13:32] VITALS: BP 111/72
[2020-08-31] MEDS ORDERED: INFLUENZA VIRUS VACCINE QVS 2020-21 (6MO+)/PF 60 MCG/0.5 ML SYRINGE IM ONE (14:00)
[2020-08-31 18:37] VITALS: BP 140/90
[2020-09-01] MEDS: LORazepam 1 MG TABLET PO PRN ×4 (04:46→15:07)
[2020-09-01 04:50] VITALS: BP 125/87
[2020-09-01] MEDS: OMEGA-3/DHA/EPA/FISH OIL 1,000 MG CAPSULE PO SCH (08:02)
[2020-09-01] MEDS: BENZTROPINE MESYLATE 0.5 MG TABLET PO SCH ×3 (08:02→16:55)
[2020-09-01] MEDS: HALOPERIDOL 1 MG TABLET PO SCH ×4 (08:02→20:40)
[2020-09-01] MEDS: MULTIVITAMINS WITH MINERALS, THERAPEUTIC TABLET PO SCH (08:02)
[2020-09-01] MEDS: GABAPENTIN 100 MG CAPSULE PO SCH ×4 (08:02→20:40)
[2020-09-01] MEDS: THIAMINE 100 MG TABLET PO SCH ×2 (08:03→16:55)
[2020-09-01] MEDS: PARoxetine HCL 10 MG TABLET PO SCH ×2 (08:03→16:55)
[2020-09-01] MEDS: NICOTINE 21 MG/24 HOUR PATCH TD SCH (08:03)
[2020-09-01] MEDS: FOLIC ACID 1 MG TABLET PO SCH (08:03)
[2020-09-01 10:07] VITALS: BP 142/82
[2020-09-01 10:16] LABS: HEMOGLOBIN A1C 5.6 % (3.8-5.6)
[2020-09-01 10:32] LABS: CHOL/HDL RATIO 3.7 (3.9-5.7); FREE T4 (FREE THYROXINE) 0.99 ng/dL (0.76-1.46); THYROID STIMULATING HORMONE 1.44 uIU/mL (0.36-3.74)
[2020-09-01] MEDS: ACETAMINOPHEN 325 MG TABLET PO PRN (11:04)
[2020-09-01 16:43] VITALS: BP 145/91
[2020-09-02 06:30] VITALS: BP 125/83
[2020-09-02] MEDS: LORazepam 1 MG TABLET PO PRN ×3 (06:33→16:12)
[2020-09-02 08:00] VITALS: BP 123/78
[2020-09-02] MEDS: GABAPENTIN 100 MG CAPSULE PO SCH ×4 (08:21→20:14)
[2020-09-02] MEDS: OMEGA-3/DHA/EPA/FISH OIL 1,000 MG CAPSULE PO SCH (08:21)
[2020-09-02] MEDS: HALOPERIDOL 1 MG TABLET PO SCH ×4 (08:21→20:14)
[2020-09-02] MEDS: FOLIC ACID 1 MG TABLET PO SCH (08:21)
[2020-09-02] MEDS: THIAMINE 100 MG TABLET PO SCH ×2 (08:21→16:20)
[2020-09-02] MEDS: MULTIVITAMINS WITH MINERALS, THERAPEUTIC TABLET PO SCH (08:21)
[2020-09-02] MEDS: BENZTROPINE MESYLATE 0.5 MG TABLET PO SCH ×3 (08:21→16:19)
[2020-09-02] MEDS: PARoxetine HCL 10 MG TABLET PO SCH ×2 (08:22→16:20)
[2020-09-02] MEDS: NICOTINE 21 MG/24 HOUR PATCH TD SCH (08:22)
[2020-09-02 16:00] VITALS: BP 131/80
[2020-09-02 17:06] VITALS: BP 130/78
[2020-09-02] MEDS: ACETAMINOPHEN 325 MG TABLET PO PRN (17:09)
[2020-09-03] MEDS: FOLIC ACID 1 MG TABLET PO SCH (08:30)
[2020-09-03] MEDS: MULTIVITAMINS WITH MINERALS, THERAPEUTIC TABLET PO SCH (08:30)
[2020-09-03] MEDS: OMEGA-3/DHA/EPA/FISH OIL 1,000 MG CAPSULE PO SCH (08:31)
[2020-09-03] MEDS: GABAPENTIN 100 MG CAPSULE PO SCH ×4 (08:31→20:48)
[2020-09-03] MEDS: THIAMINE 100 MG TABLET PO SCH ×2 (08:31→16:05)
[2020-09-03] MEDS: PARoxetine HCL 10 MG TABLET PO SCH ×2 (08:32→17:26)
[2020-09-03] MEDS: HALOPERIDOL 1 MG TABLET PO SCH ×4 (08:32→20:48)
[2020-09-03] MEDS: BENZTROPINE MESYLATE 0.5 MG TABLET PO SCH ×3 (08:32→16:06)
[2020-09-03] MEDS: NICOTINE 21 MG/24 HOUR PATCH TD SCH (08:33)
[2020-09-03] MEDS: LORazepam 1 MG TABLET PO PRN ×2 (08:34→16:06)
[2020-09-03 09:06] VITALS: BP 137/89
[2020-09-03] MEDS: TraMADol HCL 50 MG TABLET PO SCH (12:44)
[2020-09-03 12:49] VITALS: BP 118/55
[2020-09-03 13:49] VITALS: BP 119/76
[2020-09-03 16:00] VITALS: BP 153/79
[2020-09-04 06:10] VITALS: BP 133/88
[2020-09-04] MEDS: TraMADol HCL 50 MG TABLET PO SCH (06:12)
[2020-09-04 08:00] VITALS: BP 111/47
[2020-09-04] MEDS: OMEGA-3/DHA/EPA/FISH OIL 1,000 MG CAPSULE PO SCH (08:14)
[2020-09-04] MEDS: BENZTROPINE MESYLATE 0.5 MG TABLET PO SCH ×3 (08:14→16:54)
[2020-09-04] MEDS: FOLIC ACID 1 MG TABLET PO SCH (08:14)
[2020-09-04] MEDS: PARoxetine HCL 10 MG TABLET PO SCH ×2 (08:15→16:54)
[2020-09-04] MEDS: GABAPENTIN 100 MG CAPSULE PO SCH ×4 (08:15→21:06)
[2020-09-04] MEDS: HALOPERIDOL 1 MG TABLET PO SCH ×4 (08:15→21:06)
[2020-09-04] MEDS: NICOTINE 21 MG/24 HOUR PATCH TD SCH (08:16)
[2020-09-04] MEDS: MULTIVITAMINS WITH MINERALS, THERAPEUTIC TABLET PO SCH (08:16)
[2020-09-04] MEDS: THIAMINE 100 MG TABLET PO SCH ×2 (08:16→16:55)
[2020-09-04] MEDS: LORazepam 1 MG TABLET PO PRN ×2 (08:17→15:51)
[2020-09-04 17:06] VITALS: BP 110/73
[2020-09-04] MEDS ORDERED: BENZTROPINE MESYLATE 1 MG TABLET PO ONE (21:15)
[2020-09-04] MEDS ORDERED: HALO1 PO (21:18)
[2020-09-04] MEDS ORDERED: BENZ0.5T44 PO (21:18)
[2020-09-04] MEDS ORDERED: PARO10TA71 PO (21:18)
[2020-09-04] MEDS ORDERED: OMEG-135 PO (21:18)
[2020-09-05] MEDS: TraMADol HCL 50 MG TABLET PO SCH (06:27)
[2020-09-05] MEDS: LORazepam 1 MG TABLET PO PRN (07:17)
[2020-09-05 08:00] VITALS: BP 155/76
[2020-09-05] MEDS: MULTIVITAMINS WITH MINERALS, THERAPEUTIC TABLET PO SCH (08:07)
[2020-09-05] MEDS: BENZTROPINE MESYLATE 1 MG TABLET PO SCH ×2 (08:07→12:02)
[2020-09-05] MEDS: THIAMINE 100 MG TABLET PO SCH (08:08)
[2020-09-05] MEDS: FOLIC ACID 1 MG TABLET PO SCH (08:08)
[2020-09-05] MEDS: PARoxetine HCL 10 MG TABLET PO SCH ×2 (08:08→12:02)
[2020-09-05] MEDS: NICOTINE 21 MG/24 HOUR PATCH TD SCH (08:09)
[2020-09-05] MEDS: OMEGA-3/DHA/EPA/FISH OIL 1,000 MG CAPSULE PO SCH (08:09)
[2020-09-05] MEDS ORDERED: HALOPERIDOL 5 MG TABLET PO SCH (09:00)
== END 2020-09-05 14:15 | disposition home or self-care (01) | DRG 885 ==
LOC: EMS 08:36 → 3EX 12:18
PROVIDERS: ADMIT Psychiatry & Neurology Psychiatry; ATTEND Psychiatry & Neurology Psychiatry
DX: F25.1 Schizoaffective disorder, depressive type (principal); B19.20 Unspecified viral hepatitis C without hepatic coma; F17.210 Nicotine dependence, cigarettes, uncomplicated; M54.9 Dorsalgia, unspecified; G89.29 Other chronic pain; K21.9 Gastro-esophageal reflux disease without esophagitis; Z20.828 Contact with and (suspected) exposure to other viral communicable diseases; M19.90 Unspecified osteoarthritis, unspecified site; Z55.9 Problems related to education and literacy, unspecified; Z59.9 Problem related to housing and economic circumstances, unspecified; Z65.3 Problems related to other legal circumstances; Z91.19 Patient's noncompliance with other medical treatment and regimen; Z23 Encounter for immunization; Z88.8 Allergy status to other drugs, medicaments and biological substances; Z88.6 Allergy status to analgesic agent; Z79.899 Other long term (current) drug therapy
CPT/HCPCS: 71250; 83036; 84439; 84443; 87426; 93005; G0378; G0480

== ENCOUNTER 2021-04-25 15:42 | Emergency (ER) | payer MEDICARE, OTHER ==
[~2021-04-25] VITALS: Ht 152.4 cm; Wt 36.4 kg
[~2021-04-25 15:42] MED LIST changes: -DULO20CA27 PO; -GABA-533 PO; +OMEG-135 PO; +PARO-38 PO
[2021-04-25 16:07] VITALS: BP 116/75
== END 2021-04-25 16:45 | disposition home or self-care (01) ==
LOC: EMS 15:42
DX: F25.9 Schizoaffective disorder, unspecified (principal); K21.9 Gastro-esophageal reflux disease without esophagitis; F17.210 Nicotine dependence, cigarettes, uncomplicated; G89.29 Other chronic pain; Z88.8 Allergy status to other drugs, medicaments and biological substances
CPT/HCPCS: 99283; Z7502

== ENCOUNTER 2021-07-11 10:47 | Emergency (ER) | payer MEDICARE, OTHER ==
[~2021-07-11] VITALS: Ht 160 cm; Wt 50.0 kg
[2021-07-11] MEDS ORDERED: KETOROLAC TROMETHAMINE 30 MG/ML VIAL IM ONE (11:30)
[2021-07-11 11:45] VITALS: BP 116/75
== END 2021-07-11 11:46 | disposition home or self-care (01) ==
LOC: EMS 10:57
DX: M25.512 Pain in left shoulder (principal); F17.210 Nicotine dependence, cigarettes, uncomplicated; F20.9 Schizophrenia, unspecified
CPT/HCPCS: 96372; 99283; J1885

== ENCOUNTER 2022-04-12 10:02 | Emergency (ER) | payer MEDICARE, OTHER, SELFPAY ==
[~2022-04-12] VITALS: Ht 160 cm; Wt 50.0 kg
[~2022-04-12 10:02] MED LIST changes: -BENZ1TAB10 PO; +BENZ1TAB96 PO; +OMEG-108 PO; -OMEG-135 PO
[2022-04-12 10:23] VITALS: BP 112/81
[2022-04-12] MEDS ORDERED: BACITRACIN 0.9 GM PACKET OINTMENT TP ONE (11:00)
[2022-04-12] MEDS ORDERED: ACETAMINOPHEN 500 MG TABLET PO ONE (11:00)
== END 2022-04-12 11:23 | disposition home or self-care (01) ==
LOC: EMS 10:05
DX: S80.211A Abrasion, right knee, initial encounter (principal); S80.212A Abrasion, left knee, initial encounter; F25.9 Schizoaffective disorder, unspecified; Z79.899 Other long term (current) drug therapy; Z88.8 Allergy status to other drugs, medicaments and biological substances; W01.0XXA Fall on same level from slipping, tripping and stumbling without subsequent striking against object, initial encounter; Y93.89 Activity, other specified; Y92.89 Other specified places as the place of occurrence of the external cause; Y99.8 Other external cause status
CPT/HCPCS: 99283

== ENCOUNTER → 2022-05-20 | Outpatient (CLI) | payer MEDICARE, OTHER ==
[~2022-05-20] MED LIST changes: -OMEG-108 PO; +OMEG-135 PO
[2022-05-20 11:07] LABS: BASOPHILS % (AUTO) 0.5 % (0.0-2.0); EOSINOPHILS % (AUTO) 1.4 % (1.0-6.0); HEMATOCRIT 37.5 % (36-46); HEMOGLOBIN 12.8 g/dL (12.0-16.0); LYMPHOCYTES # (AUTO) 1.1 K/uL (1.0-4.8); LYMPHOCYTES % (AUTO) 16.7 % (22.0-44.0); MEAN CORPUSCULAR HEMOGLOBIN 29.8 pg (26.0-34.0); MEAN CORPUSCULAR HGB CONC 34.1 G/dL (31.0-37.0); MEAN CORPUSCULAR VOLUME 87 fL (80-100); MONOCYTES # (AUTO) 0.4 K/uL (0.1-1.0); MONOCYTES % (AUTO) 6.6 % (2.0-9.0); NEUTROPHILS # (AUTO) 4.9 K/uL (1.8-7.7); NEUTROPHILS % (AUTO) 74.8 % (40.0-70.0); PLATELET COUNT (AUTO) 263 K/uL (150-450)
[2022-05-20 12:04] LABS: VITAMIN D,TOTAL (25-0H) 51 ng/mL (30-100)
[2022-05-20 12:05] LABS: VITAMIN B12 LEVEL 924 pg/mL (211-911)
[2022-05-20 14:00] LABS: HEMOGLOBIN A1C 5.6 % (3.8-5.6)
[2022-05-21 09:57] LABS: APPEARANCE,URINE CLEAR (CLEAR); BILIRUBIN,URINE NEGATIVE (NEGATIVE); GLUCOSE, URINE (UA) NEGATIVE (NEGATIVE); KETONES,URINE NEGATIVE (NEGATIVE); LEUKOCYTE ESTERASE ,URINE NEGATIVE (NEGATIVE); NITRATE,URINE NEGATIVE (NEGATIVE); OCCULT BLOOD,URINE NEGATIVE (NEGATIVE); PROTEIN,URINE NEGATIVE (NEGATIVE); SPECIFIC GRAVITIY, URINE 1.012 (1.003-1.030); UROBILINOGEN,URINE <=1.0 mg/dL (<=1.0)
[2022-05-21 10:04] LABS: ALANINE AMINOTRANSFERASE 38 U/L (12-78); ALBUMIN 4.1 g/dL (3.4-5.0); ALKALINE PHOSPHATASE 81 U/L (46-116); ANION GAP 6 mmol/L (8-16); ASPARTATE AMINOTRANSFERASE 31 U/L (15-37); BILIRUBIN,TOTAL 0.3 mg/dL (0.1-1.0); CALCIUM, TOTAL 8.6 mg/dL (8.8-10.5); CARBON DIOXIDE 30 mmol/L (22-29); CHLORIDE 98 mmol/L (98-107); CHOL/HDL RATIO 4.3 (3.9-5.7); CHOLESTEROL 212 mg/dL (131-200); CREATININE 0.66 mg/dL (0.60-1.30); GLUCOSE,RANDOM 67 mg/dL (70-110); HDL CHOLESTEROL 49 mg/dL (40-60); LDL CHOL (CALC.) 124 mg/dL (0-130); POTASSIUM 4.5 mmol/L (3.5-5.1); SODIUM SERUM 134 mmol/L (136-145); THYROID STIMULATING HORMONE 2.62 uIU/mL (0.36-3.74); TRIGLYCERIDES 195 mg/dL (15-150); UREA NITROGEN, BLOOD 16 mg/dL (7-18)
[2022-05-21 10:06] LABS: GLOMERULAR FILTR. RATE CALC > 60 mL/min (>60)
== END | disposition home or self-care (01) ==
LOC: LABMN 10:38
PROVIDERS: ATTEND Psychiatry & Neurology Psychiatry
DX: F20.9 Schizophrenia, unspecified (principal); J44.9 Chronic obstructive pulmonary disease, unspecified; Z72.0 Tobacco use
CPT/HCPCS: 80053; 80061; 81003; 82043; 82306; 82570; 82607; 83036; 84443; 85025

== ENCOUNTER 2022-07-12 10:22 | Emergency (ER) | payer MEDICARE, OTHER ==
[~2022-07-12] VITALS: Ht 149.9 cm; Wt 40.9 kg
[2022-07-12] MEDS ORDERED: TRAM-559 PO (10:35)
[2022-07-12] MEDS ORDERED: FLUO20CA36 PO (10:35)
[2022-07-12] MEDS ORDERED: GABA-1181 PO (10:35)
[2022-07-12] MEDS ORDERED: ACETAMINOPHEN 325 MG TABLET PO ONE (10:45)
[2022-07-12 10:55] VITALS: BP 114/89
== END 2022-07-12 12:01 | disposition home or self-care (01) ==
LOC: EMS 10:53
DX: S00.31XA Abrasion of nose, initial encounter (principal); F20.9 Schizophrenia, unspecified; K21.9 Gastro-esophageal reflux disease without esophagitis; V59.9XXA Occupant (driver) (passenger) of pick-up truck or van injured in unspecified traffic accident, initial encounter; Y93.89 Activity, other specified; Y92.89 Other specified places as the place of occurrence of the external cause; Y99.8 Other external cause status; Z88.6 Allergy status to analgesic agent
CPT/HCPCS: 99282; Z7502; Z7610

== ENCOUNTER 2022-09-02 13:45 | Emergency (ER) | payer MEDICARE, OTHER ==
[~2022-09-02] VITALS: Ht 147.3 cm; Wt 40.9 kg
[~2022-09-02 13:45] MED LIST changes: +FLUO20CA36 PO; +GABA-1181 PO; -OMEG-135 PO; -PARO-38 PO; +TRAM-559 PO
[2022-09-02] MEDS ORDERED: OMEP20CA13 PO (16:22)
[2022-09-02] MEDS ORDERED: TraMADol HCL 50 MG TABLET PO ONE (16:30)
[2022-09-02 20:30] VITALS: BP 133/84
== END 2022-09-03 01:32 | disposition home or self-care (01) ==
LOC: EMS 13:45
DX: M25.512 Pain in left shoulder (principal); F20.9 Schizophrenia, unspecified; K21.9 Gastro-esophageal reflux disease without esophagitis; F17.210 Nicotine dependence, cigarettes, uncomplicated; Z96.612 Presence of left artificial shoulder joint; Z88.4 Allergy status to anesthetic agent
CPT/HCPCS: 99283

== ENCOUNTER → 2022-10-30 | Outpatient (CLI) | payer MEDICARE, OTHER ==
[~2022-10-30] MED LIST changes: +OMEP20CA13 PO
[2022-10-30 15:55] LABS: BASOPHILS % (AUTO) 0.6 % (0.0-2.0); EOSINOPHILS % (AUTO) 1.3 % (1.0-6.0); HEMATOCRIT 31.8 % (36-46); HEMOGLOBIN 10.2 g/dL (12.0-16.0); LYMPHOCYTES # (AUTO) 1.4 K/uL (1.0-4.8); LYMPHOCYTES % (AUTO) 14.6 % (22.0-44.0); MEAN CORPUSCULAR HEMOGLOBIN 27.3 pg (26.0-34.0); MEAN CORPUSCULAR VOLUME 85 fL (80-100); MONOCYTES # (AUTO) 0.8 K/uL (0.1-1.0); MONOCYTES % (AUTO) 8.3 % (2.0-9.0); NEUTROPHILS % (AUTO) 75.2 % (40.0-70.0); PLATELET COUNT (AUTO) 377 K/uL (150-450); RED BLOOD CELL COUNT(AUTO) 3.73 MIL/uL (4.00-5.20); RED CELL DISTRIBUTION WIDTH 14.7 % (11.5-14.5)
[2022-10-30 17:31] LABS: ALANINE AMINOTRANSFERASE 26 U/L (12-78); ALBUMIN 3.3 g/dL (3.4-5.0); ALKALINE PHOSPHATASE 148 U/L (46-116); ANION GAP 10 mmol/L (8-16); ASPARTATE AMINOTRANSFERASE 30 U/L (15-37); BILIRUBIN,TOTAL 0.2 mg/dL (0.1-1.0); CALCIUM, TOTAL 8.9 mg/dL (8.8-10.5); CARBON DIOXIDE 28 mmol/L (22-29); CHLORIDE 98 mmol/L (98-107); CREATININE 0.48 mg/dL (0.60-1.30); GLUCOSE,RANDOM 84 mg/dL (70-110); POTASSIUM 4.6 mmol/L (3.5-5.1); SODIUM SERUM 136 mmol/L (136-145); TOTAL PROTEIN, SERUM 6.9 g/dL (6.4-8.2); UREA NITROGEN, BLOOD 17 mg/dL (7-18)
[2022-10-30 17:32] LABS: GLOMERULAR FILTR. RATE CALC > 60 mL/min (>60)
[2022-10-30 17:37] LABS: FOLATE SERUM 18.9 ng/mL (5.4-)
== END | disposition home or self-care (01) ==
LOC: LABMN 13:08
PROVIDERS: ATTEND Psychiatry & Neurology Psychiatry
DX: R26.0 Ataxic gait (principal)
CPT/HCPCS: 80053; 82607; 82746; 84443; 85025